=== PATIENT | male | born 1955 | race Caucasian/White ===

== ENCOUNTER → 2016-11-26 | Outpatient (CLI) | payer OTHER ==
[~2016-11-26] MED LIST: ABL10 PO; ACET-1138 PO; ACET-24 PO; AMOX500C3 PO; ASPCH81X PO; ASPEC81 PO; CGN5 PO; CGN5X PO; CLB200 PO; FLUO20CA35 PO; FRRG PO; GLC/500 PO; IBUP-103 PO; IBUP-1428 PO; MULT-513 PO; MULT-890 PO; ONDA8TAB6 PO; OXYC-57 PO; OXYC1TAB3 PO; OXYSR10 PO; POLY335019 PO; PRLSR20 PO; RISP1TAB68 PO; RISP2TAB22 PO; RIVAROXABAN; RXC5 PO; THIO50TA PO; THIO50TA9 PO
[2016-11-26 12:26] LABS: BASO % 0.3 %; BASO ABS # 0.02 K/uL (0-0.2); COMPLETE YES; EOS % 3.9 %; HEMATOCRIT 39.3 % (42-52); IG% 0.6 %; LYMPH % 19.8 %; LYMPH ABS # 1.41 K/uL (1.2-3.4); MEAN CORPUSCULAR HEMOGLOBIN 28.2 pg (25-34); MEAN CORPUSCULAR HGB CONC 36.1 g/dl (32-36); MEAN PLATELET VOLUME 8.9 fL (7.4-10.4); MONO % 11.1 %; NEUT % 64.3 %; PLATELET COUNT 154 K/uL (130-400); RED BLOOD COUNT 5.04 M/uL (4.7-6.1); WHITE BLOOD COUNT 7.11 K/uL (4.8-10.8)
== END | disposition home or self-care (01) ==
LOC: C.LAB 10:47
DX: T84.018D Broken internal joint prosthesis, other site, subsequent encounter (principal); Y83.1 Surgical operation with implant of artificial internal device as the cause of abnormal reaction of the patient, or of later complication, without mention of misadventure at the time of the procedure

== ENCOUNTER 2016-12-25 08:22 | Inpatient (IN) | payer OTHER ==
[2016-12-09 11:28] VITALS: BMI 40.0
--- NOTE | 2016-12-09 12:09 | PAT Medication Instructions ---
Service Date Dec 09, 2016. Current Home Medication List Amoxicillin (Amoxil), 2,000 MG PO UD PRN for RN Benztropine Mesylate (Cogentin *), 0.5 MG PO QAM Fluoxetine (Prozac), 20 MG PO QAM Ibuprofen (Motrin), 800 MG PO BID PRN for Pain Metformin Hcl (Glucophage), 500 MG PO BID Multivitamins/Minerals (Mvi With Minerals), 1 TAB PO QAM Omeprazole (Prilosec), 20 MG PO QAM Risperidone (Risperdal), 1 MG PO HS Thioridazine Hcl (Mellaril), 50 MG PO TID Medication Instructions For Your Scheduled Surgery Amoxicillin (Amoxil), 2,000 MG PO UD PRN for RN (takes only prior to dental procedures) - Hold the following medications 48 hours prior to surgery: Metformin Hcl (Glucophage), 500 MG PO BID - Hold the following medications the morning of surgery: Multivitamins/Minerals (Mvi With Minerals), 1 TAB PO QAM Ibuprofen (Motrin), 800 MG PO BID PRN for Pain (not told to stop by surgeon) - Take the following medications the morning of surgery with a sip of water: Omeprazole (Prilosec), 20 MG PO QAM Fluoxetine (Prozac), 20 MG PO QAM Thioridazine Hcl (Mellaril), 50 MG PO TID Benztropine Mesylate (Cogentin *), 0.5 MG PO QAM - Take the following medications as scheduled the night before surgery: Risperidone (Risperdal), 1 MG PO HS hioridazine Hcl (Mellaril), 50 MG PO TID If you have any questions please call us at [phone] or [phone] ( [place]) or [phone]
--- NOTE | 2016-12-09 12:29 | DIAGNOSTIC IMAGING REPORT ---
CHEST 2 VIEWS ROUTINE CLINICAL HISTORY: pat preoperative evaluation COMPARISON STUDY: 09/01/2011 FINDINGS: The bones soft tissues and hemidiaphragms are normal. The cardiomediastinal silhouette is normal. The lungs are clear. The pulmonary vasculature is normal. IMPRESSION: Negative chest. Electronically signed by: Trace Jacques M.D. 12/09/2016 12:27 PM Dictated Date/Time: 12/09/2016 12:27 PM
[2016-12-09 12:31] LABS: URINE APPEARANCE CLEAR (CLEAR); URINE BILIRUBIN NEG (NEG); URINE COLOR YELLOW; URINE NITRITE NEG (NEG); URINE PH 5.5 (4.5-7.5); URINE SPECIFIC GRAVITY 1.007 (1.000-1.030); UROBILINOGEN NEG (NEG)
[2016-12-09 12:36] LABS: MANUAL MICROSCOPIC REQUIRED? NO; REVIEW REQ? NO
[2016-12-09 12:39] LABS: PARTIAL THROMBOPLASTIN RATIO 1.1; PROTHROMBIN TIME (PATIENT) 10.2 SECONDS (9.0-12.0)
[2016-12-09 13:39] LABS: BUN/CREATININE RATIO 18.9 (10-20); CALCIUM 9.4 mg/dl (8.5-10.1); POTASSIUM 3.7 mmol/L (3.5-5.1)
[2016-12-09 14:01] LABS: ESTIMATED AVERAGE GLUCOSE 123 mg/dl; HA1C FLAG Normal (Normal)
--- NOTE | 2016-12-24 13:06 | HISTORY & PHYSICAL EXAMINATION ---
DATE OF ADMISSION: 12/25/2016 CHIEF COMPLAINT: Right knee pain status post previous right total knee arthroplasty. HISTORY OF PRESENT ILLNESS: The patient is a 61-year-old male, approximately 5-6 years status post right total knee arthroplasty. He has had progressive pain and disability with his knee. X-ray examination shows evidence of osteolysis about both femoral and tibial components consistent with loosening. He had a negative sed rate, slightly elevated CRP to rule out infection. He is now scheduled for a right total knee revision for aseptic loosening. PAST MEDICAL HISTORY: Sleep apnea with CPAP use, depression, peptic ulcer disease, hyperlipidemia, metabolic syndrome, genital herpes, obesity, schizoaffective disorder. PAST SURGICAL HISTORY: Total knee arthroplasty as above, also left total knee arthroplasty, shoulder surgery. MEDICATIONS: Ibuprofen 800 mg 2 times daily, metformin 500 mg twice daily with morning and evening meals, Prilosec 20 mg daily, risperidone 1 mg daily, Prozac 20 mg daily, thioridazine hydrochloride 50 mg 3 times daily, benztropine mesylate 0.5 mg twice daily. ALLERGIES: No known drug allergies. SOCIAL HISTORY AND REVIEW OF SYSTEMS: Noncontributory. PHYSICAL EXAMINATION: GENERAL: Well-nourished, well-developed male who appears his stated age. HEENT: Normocephalic, atraumatic, extraocular movements intact, oropharynx pink and moist. NECK: Supple without adenopathy. LUNGS: Clear to auscultation bilaterally. HEART: Regular rate and rhythm. ABDOMEN: Soft, nontender, nondistended. EXTREMITIES: The upper extremities are within normal limits. The right knee has a slight varus alignment. His range of motion is from 0-120 degrees. X-RAYS: X-rays were reviewed. He has evidence of osteolysis about both femoral and tibial components. There is evidence about the medial and lateral tibial tray as well as the anterior flange of the femoral component. 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 PLAN: Risks versus benefits were discussed. Consent was obtained. The patient's primary care physician is Dr. De La Garza. We will proceed with right total knee revision arthroplasty upon preoperative workup and medical clearance.
[2016-12-25] VITALS (7 sets, daily range): BP systolic 103–153; BP diastolic 68–95; PULSE 67–92; TEMP 36.3–37; O2SAT 95–98; Ht 170.2 cm; Wt 116.7 kg
[~2016-12-25] VITALS: Ht 170.2 cm; Wt 116.7 kg
[2016-12-25] MEDS: TRANEXAMIC ACID INJ 1,000 MG in SODIUM CHLORIDE 0.9% 100ML 100 ML IV SCH ×2 (06:30→10:21)
[~2016-12-25 08:22] MED LIST changes: -ABL10 PO; -ACET-1138 PO; -ACET-24 PO; +ACETAMINOPHEN 500 MG TAB PO SCH; -ASPCH81X PO; -ASPEC81 PO; +BUPIVACAINE 0.5 % 5 MG/1 ML PF 10ML VIAL ONE; +CEFAZOLIN 2000 MG/60 ML D5W 60 ML IV SCH; -CGN5X PO; -CLB200 PO; +CeleBREX 200 MG CAP PO SCH; +DEXAMETHASONE 4 MG TAB PO SCH; +FAMOTIDINE 20 MG TAB PO SCH; -FRRG PO; +GABAPENTIN 300 MG CAP PO SCH; -IBUP-103 PO; +LACTATED RINGER'S 1000ML 1,000 ML IV SCH; +LACTATED RINGER'S 1000ML 500 ML IV ONE; +LACTATED RINGER'S 1000ML IV SCH; +METOCLOPRAMIDE HCL 10 MG TAB PO SCH; +MISSING PHYSICIAN SIGNATURE ON ORDER SCH; -MULT-890 PO; -ONDA8TAB6 PO; -OXYC-57 PO; -OXYC1TAB3 PO; -OXYSR10 PO; -POLY335019 PO; -RISP2TAB22 PO; -RIVAROXABAN; +ROPIVACAINE 5MG/ML 30 ML 150 MG, BUPIVACAINE/EPINEPHR 0.5% MPF 30 ML, KETOROLAC TROMETH... INFIL SCH; -RXC5 PO; -THIO50TA PO; +TRANEXAMIC ACID INJ 1,000 MG in SODIUM CHLORIDE 0.9% 100ML 100 ML IV SCH; +VANCOMYCIN INJ 1,750 MG in SODIUM CHLORIDE 0.9% 500ML 500 ML IV SCH
--- NOTE | 2016-12-25 08:32 | History & Physical Bridge Note ---
H&P Re-Evaluation Bridge Note: I have examined the patient, reviewed the History & Physical and in the interval since the performance of the History & Physical I have noted the following changes of clinical significance: No changes noted
[2016-12-25] MEDS ORDERED: MIDAZOLAM HCL 1 MG/ML 2ML VIAL ONE (08:41)
[2016-12-25] MEDS ORDERED: FENTANYL CITRATE INJ 50 MCG/1 ML 2 ML VIAL ONE (08:42)
[2016-12-25] MEDS ORDERED: ATROPINE SULFATE 0.1 MG/ML 5ML SYR IV PRN (10:15)
[2016-12-25] MEDS ORDERED: FENTANYL CITRATE INJ 50 MCG/1 ML 2 ML VIAL IV PRN (10:15)
[2016-12-25] MEDS ORDERED: ONDANSETRON INJ 2 MG/ML 2 ML VIAL IV PRN ×2 (10:15→14:30)
[2016-12-25] MEDS ORDERED: EpHEDrine SULFATE INJ 50 MG/ML AMP IV PRN (10:15)
[2016-12-25] MEDS ORDERED: ORTHO JOINT ANESTHETIC ONE (10:22)
[2016-12-25] MEDS ORDERED: POVIDONE-IODINE OP SOLN 30 ML BTL ONE (10:22)
[2016-12-25] MEDS ORDERED: BACITRACIN 50000 UNIT VIAL ONE (10:22)
[2016-12-25] MEDS ORDERED: BUPIVACAINE 0.25% 30 ML VIAL ONE (10:45)
[2016-12-25] MEDS ORDERED: LIDOCAINE HCL 2% 2 ML VIAL (20MG/ML) ONE (11:32)
[2016-12-25] MEDS ORDERED: PROPOFOL IV EMULSION 10 MG/ML 20 ML VIAL IV ONE ×3 (11:32→12:58)
[2016-12-25] MEDS ORDERED: PHENYLEPHRINE HCL INJ 10 MG/ML VIAL ONE (11:32)
[2016-12-25] MEDS ORDERED: EpHEDrine SULFATE 50MG/5ML SYR ONE (11:32)
[2016-12-25] MEDS ORDERED: PHENYLEPHRINE 100MCG/ML 5ML SYR ONE (11:32)
--- NOTE | 2016-12-25 13:55 | [facility] Post Operative Brief Note ---
Immediate Operative Summary Operative Date Dec 25, 2016. Pre-Operative Diagnosis Right knee pain, aseptic loosening right total knee arthroplasty Post-Operative Diagnosis Right knee pain, aseptic loosening right total knee arthroplasty Procedure(s) Performed Right total knee revision Surgeon Dr. Bautista Negotiator Surgeon(s) Rodrick Perales PA-C Estimated Blood Loss 20cc Specimens Specimen: A. Explanted hardware right knee Micro: (Aerobic, Anaerobic, gram stain) 1. Right knee joint fluid 2. Right knee joint fluid 3. Right knee joint fluid Frozen Section: FS#1: Bone cement interface Right femur FS #2: Tibial bone cement interface Complication(s) None Disposition Recovery Room / PACU
[2016-12-25] MEDS ORDERED: MAGNESIUM HYDROXIDE SUSP 30 ML UDC PO PRN (14:30)
[2016-12-25] MEDS ORDERED: TAMSULOSIN HCL 0.4 MG CAP PO PRN (14:30)
[2016-12-25] MEDS ORDERED: METOCLOPRAMIDE HCL INJ 5 MG/ML 2 ML VIAL IV PRN (14:30)
[2016-12-25] MEDS ORDERED: ZOLPIDEM TARTRATE 5 MG TAB PO PRN (14:30)
[2016-12-25] MEDS ORDERED: OXYCODONE HCL IR 5 MG TAB (IMMEDIATE RELEASE) PO PRN (14:30)
[2016-12-25] MEDS ORDERED: ALUMINUM/MAGNESIUM/SIMETH (MAALOX MAX) 30 ML UDC PO PRN (14:30)
[2016-12-25] MEDS ORDERED: MoRPHine SULFATE 2 MG/ML CARP IV PRN ×2 (14:30→16:30)
[2016-12-25] MEDS ORDERED: PHARMACY GLYCEMIC MGMT CONSULT SCH (14:34)
--- NOTE | 2016-12-25 15:15 | DIAGNOSTIC IMAGING REPORT ---
TWO VIEWS RIGHT KNEE CLINICAL HISTORY: Postoperative examination. FINDINGS: AP and crosstable lateral portable views of the right knee are obtained. A hinged right knee arthroplasty is in near anatomic alignment. There are long tibial and femoral stems. There has been undersurface remodeling of the patella. No acute fracture is seen. There are expected postoperative changes around the knee including skin clips, a surgical drain, soft tissue edema, and subcutaneous gas. A calcified fabella is incidentally noted. IMPRESSION: Expected postoperative changes status post right knee arthroplasty. No acute fracture is seen. Electronically signed by: Gabriele Sanchez M.D. 12/25/2016 3:14 PM Dictated Date/Time: 12/25/2016 3:14 PM
--- NOTE | 2016-12-25 15:21 | OPERATIVE REPORT ---
DATE OF OPERATION: 12/25/2016 PREOPERATIVE DIAGNOSIS: Aseptic loosening, right total knee. POSTOPERATIVE DIAGNOSIS: Aseptic loosening, right total knee. PROCEDURE: Revision total knee arthroplasty, aseptic loosening, right total knee. SURGEON: Dr. Bautista. GENERAL UTILITY MACHINE OPERATOR: Rodrick Perales PA-C ANESTHESIA: Spinal. COMPLICATIONS: None. NOTE: Mr. Perales was essential in all portions of this very complicated and extensive revision case. He helped with positioning, prepping, draping, total knee revision, wound closure and dressing application. DESCRIPTION OF PROCEDURE: Following the induction of adequate spinal anesthesia, the patient's right leg was exsanguinated with an Esmarch bandage, tourniquet was inflated to 300 mmHg. Previously made incision was reopened. Subcutaneous tissue was sharply dissected. Electrocautery was used for hemostasis. Three cultures were sent to lab for Gram stain culture sensitivity and the joint fluid was suctioned dry. Great hypertrophic synovitis was noted throughout the joint. This was removed using sharp dissection. First the lateral snip was performed in the lateral half of the rectus tendon to aid in exposure and significant scarring from the undersurface of the patellar tendon was carried out. A lateral release was also carried out to aid in exposure. The tibial poly was removed and attention was turned to the distal femur where artist chisels and the [employer] component extraction system was utilized to remove the femoral component. This was removed with great ease. Substantial fibrinous debris from the bone cement interface was sent to lab for pathology. No bone was lost with removal of the component; however, substantial osteolysis was noted, most notably anteriorly as well as the posterior condyles. Significant augmentation was going to be required. Attention was then turned to the tibia which was found to be grossly loose. Saw was used to develop the bone cement plane anterior medially and then Fukuda extraction systems was utilized to remove the femoral component. [employer] bone cement instruments were used to remove the majority of the cement from the canal, a long drill was utilized to drill through the cement plug and this was broken up using hand instruments and the cement fragments were removed using a pituitary rongeur. Next, sequential reamings were taken up in the tibia, first with a drill and then a starter reamer up to a 10 mm reamer. The canal was quite narrow and a 10 mm was accepted. The size 4 trial tibia was chosen after making a cleanup cut and removing posterior scar. The biggest proximal defect was in the posterior medial and tibial plateau. All soft tissue was removed until good bone stalk was exposed. Next, the baseplate for the tibia was placed and it was found that a 4 mm offset was going to be required posteriorly offsetting the tibial tray the stem. A 5 mm augment was chosen and the trial tibial component was assembled. This was impacted in position. The decision was made to go with a size 4 femoral component, the cutting guide for the size 4 was utilized, a 16 mm tibial poly gave good reproduction of soft tissue tension and flexion and extension and posterior augments of 10 medial and laterally utilized and 5 medially and 10 laterally for the distal augments. All these cuts were made. The box was cut and the trial femoral component was assembled. Trial reduction was carried out and again a size 16 poly was chosen. The patella was inspected and there was found to be some undermining of the grade synovitis at the bone cement interface for the patella and the decision was made to go ahead and revise this. The patella was removed with an oscillating saw. [employer] K wires were utilized to remove the plastic stubs on the patella and the wound was irrigated. Pulsatile irrigation was used throughout the case and a final time at the end of the case. Cement was mixed after the components were assembled. First the tibia was cemented in position. All excess cement was removed. Following this, the femur was cemented into position and again all excess cement was removed. The tibial poly was placed, the retaining pin was impacted into position, the knee was reduced and held in extension while cement hardened. The patella was lastly cemented into position. The wound was irrigated one last time and closed. #1 Vicryl was used to close the lateral snip and the extensor mechanism. Subcutaneous tissues were closed using 0 Dexon. Skin was closed with rosa m. Sterile dressing of Adaptic, 4 x 4s, sterile Webril and double length Cayden was applied. The patient tolerated the procedure well. I attest to the content of the Intraoperative Record and any orders documented therein. Any exceptions are noted below. WARREN
--- NOTE | 2016-12-25 15:21 | Pharmacy Progress Note ---
Glycemic Control Intl Consult Date of Service Dec 25, 2016. Scope Glycemic Pharmacist consulted by Rodrick Perales PA-C on 12/25/16 for glycemic control and to write orders per [facility] inpatient glycemic control protocol Objective Weight (Kilograms): 116.70 Accuchecks BSG (last 24hrs): Test 12/25/16 08:43 12/25/16 14:32 Bedside Glucose 101 mg/dl (70-99) 93 mg/dl (70-99) HbA1c Test 12/09/16 12:12 Hemoglobin A1c 5.9 % (4.5-5.6) H Recent Pertinent Medications Outpatient Anti-diabetic Regimen: * Metformin 500mg BIDM * A1c = 5.9 % from 12/09/16 Risk Factors for Insulin Resistance: * Steroids: Decadron 10mg PO x 1 , POD 1 * Infection: Vancomycin pre-op, Ancef post-op, infxn prophylaxis * IVF:NS at 100 ml/hr * Recent Surgery: POD 0, TKA * Diet: DM2 Assessment & Plan ASSESSMENT: * ADA & AACE recommend a goal blood sugar range 140-180 mg/dl for the majority of critically ill & non-critically ill patients. However, more stringent targets may be selected in individual cases. * 61 yo male admitted s/p TKA by Dr. Bautista today. * Pt with h/o DM2. A1c indicates well-controlled BSGs on Metformin therapy alone. * Oral agents are not recommended for inpatient use d/t drug interactions, changing PO intake, and difficulty titrating for acute hyper/hypoglycemia. ADA recommends re-initiating outpatient oral agents 1-2 days prior to discharge if/ when appropriate if they were held on admission. * Will hold oral agents for admission and utilize SQ basal bolus insulin regimen which is the recommended regimen for inpatient glycemic control. * Will initiate weight based insulin dosing for insulin eze patient and titrate based on BSG trends. * Of note, the patient is ordered a single dose of Decadron po x 1 tomorrow morning. Will need to adjust insulin regimen to counter steroid effect on BSGs. I do not suspect basal insulin is necessary, however, a single dose of long acting insulin may be required tomorrow to counter long acting steroid. Will reassess in the AM * Will attempt to maintain control of BSGs to promote healing and decrease risk of infection post-operatively. PLAN FOR INPATIENT GLYCEMIC CONTROL: * No Lantus, will consider single dose tomorrow AM if steroid given. * Novolog ACHS * Set correction factor to 25 mg/dl/unit * Set carb ratio to 1 unit per 10 grams CHO consumed * Tighten CF to 20 and CR to 7 tomorrow AM (12/26/16) secondary to increased insulin needs in presence of steroid. * Set goal range to Low 120 mg/dL - High 160 mg/dL - as a buffer against hypoglycemia in insulin naive pt whose insulin needs have yet to be determined * Please note that the plan above was derived based on current level of insulin resistance and hospital stress. These recommendations are appropriate for inpatient admission only. Plan of care upon discharge will need to be reassessed to avoid potential outpatient hypo/hyperglycemia. Thank you.
[2016-12-25] MEDS ORDERED: GLUCAGON FOR INJ 1 MG VIAL SQ PRN (15:30)
[2016-12-25] MEDS ORDERED: DEXTROSE 50% 50 ML SYR IV PRN (15:30)
[2016-12-25] MEDS ORDERED: GLUCOSE 10 TABS/TUBE PO PRN (15:30)
[2016-12-25] MEDS ORDERED: GLUCOSE 40% GEL 15 GM TUBE PO PRN (15:30)
--- NOTE | 2016-12-25 16:28 | Anesthesiology Progress Note ---
Anesthesia Post Op Note Date & Time Dec 25, 2016 at 16:27 Vital Signs Pain Intensity: 0 Vital Signs Past 12 Hours Date Time Temp Pulse Resp B/P Pulse Ox O2 Delivery O2 Flow Rate FiO2 12/25/16 16:03 36.4 73 16 113/75 98 Nasal Cannula 2.0 12/25/16 15:35 36.6 71 18 103/69 96 Nasal Cannula 2.0 12/25/16 15:18 37.0 12/25/16 15:16 116/67 12/25/16 15:12 71 17 12/25/16 15:12 70 17 100 12/25/16 15:11 112/76 12/25/16 15:07 78 15 90 12/25/16 15:07 77 15 12/25/16 15:06 119/73 12/25/16 15:04 78 17 92 12/25/16 15:04 79 17 12/25/16 15:00 112/74 12/25/16 14:59 76 19 12/25/16 14:59 76 19 92 12/25/16 14:56 98/77 12/25/16 14:54 71 14 12/25/16 14:54 71 14 93 12/25/16 14:53 71 17 12/25/16 14:53 72 17 93 12/25/16 14:51 119/70 12/25/16 14:48 75 14 12/25/16 14:48 73 14 93 12/25/16 14:47 70 15 12/25/16 14:47 70 15 93 12/25/16 14:46 107/77 12/25/16 14:42 72 16 93 12/25/16 14:42 73 16 12/25/16 14:41 118/88 12/25/16 14:37 72 12 93 12/25/16 14:37 72 12 12/25/16 14:36 112/94 12/25/16 14:32 73 24 89 12/25/16 14:32 72 24 12/25/16 14:31 137/86 12/25/16 14:28 112/82 12/25/16 14:27 36.7 73 16 112/83 95 Mask 10 12/25/16 14:27 76 12/25/16 14:27 76 93 12/25/16 08:40 92 18 153/95 95 Room Air Notes Mental Status: alert / awake / arousable, participated in evaluation Pt Amnestic to Procedure: Yes Nausea / Vomiting: adequately controlled Pain: adequately controlled Airway Patency, RR, SpO2: stable & adequate BP & HR: stable & adequate Hydration State: stable & adequate Neuraxial Anesthesia: was administered, sensory block is resolving Anesthetic Complications: no major complications apparent
[2016-12-25] MEDS ORDERED: MoRPHine SULFATE 10 MG/ML CARP/VIAL IV PRN (16:30)
[2016-12-25] MEDS ORDERED: MoRPHine SULFATE 4 MG/ML 1 ML CARP\\VIAL IV PRN (16:30)
[2016-12-25] MEDS: INSULIN ASPART 100 UNITS/ML 3 ML PEN SC SCH ×2 (17:15→21:00)
[2016-12-25] MEDS: SODIUM CHLORIDE 0.9% 1000ML 1,000 ML IV SCH ×2 (17:40→23:51)
[2016-12-25] MEDS: FERROUS GLUCONATE 324 MG TAB PO SCH (17:42)
[2016-12-25] MEDS: CEFAZOLIN IV 2,000 MG in DEXTROSE 5% 50ML 50 ML IV SCH (18:44)
[2016-12-25] MEDS: KETOROLAC TROMETHAMINE 30 MG/ML VIAL IV. SCH ×2 (18:44→23:46)
[2016-12-25] MEDS: OXYCODONE HCL 10 MG TABCR (OXYCONTIN) PO SCH (21:25)
[2016-12-25] MEDS: ASPIRIN 81 MG ECTAB PO SCH (21:26)
[2016-12-25] MEDS: DOCUSATE SODIUM 100 MG CAP PO SCH (21:26)
[2016-12-25] MEDS: RISPERIDONE 1 MG TAB PO SCH (21:26)
[2016-12-25] MEDS: ACETAMINOPHEN 500 MG TAB PO SCH (21:29)
[2016-12-26] MEDS: CEFAZOLIN IV 2,000 MG in DEXTROSE 5% 50ML 50 ML IV SCH (02:00)
[2016-12-26 03:05] VITALS: BP 131/79; PULSE 77; TEMP 36.4; O2SAT 96
[2016-12-26] MEDS: KETOROLAC TROMETHAMINE 30 MG/ML VIAL IV. SCH ×2 (05:33→12:16)
[2016-12-26] MEDS: ACETAMINOPHEN 500 MG TAB PO SCH ×3 (05:33→22:05)
[2016-12-26 06:29] LABS: HEMATOCRIT 33.4 % (42-52); MEAN CORPUSCULAR HEMOGLOBIN 27.2 pg (25-34); MEAN CORPUSCULAR HGB CONC 34.4 g/dl (32-36); MEAN PLATELET VOLUME 8.7 fL (7.4-10.4); PLATELET COUNT 150 K/uL (130-400); RED BLOOD COUNT 4.23 M/uL (4.7-6.1); WHITE BLOOD COUNT 12.11 K/uL (4.8-10.8)
[2016-12-26 07:10] LABS: BUN/CREATININE RATIO 15.1 (10-20); CALCIUM 8.5 mg/dl (8.5-10.1); CREATININE 0.84 mg/dl (0.60-1.40); POTASSIUM 3.8 mmol/L (3.5-5.1)
[2016-12-26 07:29] VITALS: BP 123/76; PULSE 75; TEMP 36.4; O2SAT 97
[2016-12-26] MEDS ORDERED: DEXAMETHASONE INJ 10 MG in SYRINGE 0 ML IV SCH (07:30)
--- NOTE | 2016-12-26 07:37 | Orthopedic Progress Note ---
Orthopedic Progress Note Date of Service Dec 26, 2016. Subjective Post OP Day: 1 Reports: feeling well, Denies: SOB, calf pain, chest pain, light headedness, nausea / vomiting Objective calves soft nontender, N/V intact, dressing C/D/I, A&O x3, toes mobile, hemovac drainage (150ml latest shift) Date Time Temp Pulse Resp B/P Pulse Ox O2 Delivery O2 Flow Rate FiO2 12/26/16 07:29 36.4 75 18 123/76 97 Nasal Cannula 2.0 12/26/16 03:05 36.4 77 16 131/79 96 Nasal Cannula 1.5 12/25/16 23:51 Nasal Cannula 2.0 12/25/16 23:00 36.4 75 16 126/80 96 Nasal Cannula 1.5 12/25/16 18:58 36.3 73 18 132/87 98 Nasal Cannula 1.0 12/25/16 17:41 37.0 79 18 124/79 97 Nasal Cannula 2.0 12/25/16 16:33 36.3 67 18 107/68 97 Nasal Cannula 2.0 12/25/16 16:03 36.4 73 16 113/75 98 Nasal Cannula 2.0 12/25/16 15:35 Nasal Cannula 2.0 12/25/16 15:35 96 Nasal Cannula 2.0 12/25/16 15:35 36.6 71 18 103/69 96 Nasal Cannula 2.0 12/25/16 15:18 37.0 12/25/16 15:16 116/67 12/25/16 15:12 71 17 12/25/16 15:12 70 17 100 12/25/16 15:11 112/76 12/25/16 15:07 78 15 90 12/25/16 15:07 77 15 12/25/16 15:06 119/73 12/25/16 15:04 78 17 92 12/25/16 15:04 79 17 12/25/16 15:00 112/74 12/25/16 14:59 76 19 12/25/16 14:59 76 19 92 12/25/16 14:56 98/77 12/25/16 14:54 71 14 12/25/16 14:54 71 14 93 12/25/16 14:53 71 17 12/25/16 14:53 72 17 93 12/25/16 14:51 119/70 12/25/16 14:48 75 14 12/25/16 14:48 73 14 93 12/25/16 14:47 70 15 12/25/16 14:47 70 15 93 12/25/16 14:46 107/77 12/25/16 14:42 72 16 93 12/25/16 14:42 73 16 12/25/16 14:41 118/88 12/25/16 14:37 72 12 93 12/25/16 14:37 72 12 12/25/16 14:36 112/94 12/25/16 14:32 73 24 89 12/25/16 14:32 72 24 12/25/16 14:31 137/86 12/25/16 14:28 112/82 12/25/16 14:27 36.7 73 16 112/83 95 Mask 10 12/25/16 14:27 76 12/25/16 14:27 76 93 12/25/16 08:40 92 18 153/95 95 Room Air Laboratory Results 24 Hours: Test 12/26/16 05:10 Hematocrit 33.4 % Hemoglobin 11.5 g/dL Assessment & Plan Assessment: POD 1 s/p Right TKA Plan: PT/OT Planning for OPPT when dc'd Inhouse Planning Pain Management: Celebrex, Toradol, Oxycontin, Morphine, PO Tylenol, Oxy IR DVT Prophylaxis: TEDs, SCDs, ASA Discharge Planning Discharge Planning: home with oppt Pain Management: Oxycontin, PO Tylenol, Oxy IR DVT Prophylaxis: TEDs, ASA Therapy: Physical Therapy
--- NOTE | 2016-12-26 08:06 | Anesthesiology Progress Note ---
Anesthesia Post Op Note Date & Time Dec 26, 2016 at 08:05 Vital Signs Pain Intensity: 0.0 Vital Signs Past 12 Hours Date Time Temp Pulse Resp B/P Pulse Ox O2 Delivery O2 Flow Rate FiO2 12/26/16 07:29 36.4 75 18 123/76 97 Nasal Cannula 2.0 12/26/16 03:05 36.4 77 16 131/79 96 Nasal Cannula 1.5 12/25/16 23:51 Nasal Cannula 2.0 12/25/16 23:00 36.4 75 16 126/80 96 Nasal Cannula 1.5 Notes Mental Status: alert / awake / arousable, participated in evaluation Pt Amnestic to Procedure: Yes Nausea / Vomiting: adequately controlled Pain: adequately controlled Airway Patency, RR, SpO2: stable & adequate BP & HR: stable & adequate Hydration State: stable & adequate Neuraxial Anesthesia: sensory block resolved Anesthetic Complications: no major complications apparent
[2016-12-26] MEDS: MULTIVITAMIN TAB PO SCH (08:20)
[2016-12-26] MEDS: FERROUS GLUCONATE 324 MG TAB PO SCH ×3 (08:21→18:26)
[2016-12-26] MEDS: FLUOXETINE HCL 20 MG CAP PO SCH (08:21)
[2016-12-26] MEDS: BENZTROPINE MESYLATE 0.5 MG TAB PO SCH (08:21)
[2016-12-26] MEDS: PANTOprazole SOD 40 MG TAB PO SCH (08:21)
[2016-12-26] MEDS: DOCUSATE SODIUM 100 MG CAP PO SCH ×2 (08:22→20:37)
[2016-12-26] MEDS: ASPIRIN 81 MG ECTAB PO SCH ×2 (08:22→20:37)
[2016-12-26] MEDS: OXYCODONE HCL 10 MG TABCR (OXYCONTIN) PO SCH ×2 (08:25→20:42)
[2016-12-26] MEDS: INSULIN ASPART 100 UNITS/ML 3 ML PEN SC SCH ×4 (08:37→20:46)
[2016-12-26] MEDS: SODIUM CHLORIDE 0.9% 1000ML 1,000 ML IV SCH (10:23)
[2016-12-26 11:08] VITALS: BP 124/79; PULSE 74; TEMP 36.4; O2SAT 95
--- NOTE | 2016-12-26 14:40 | Pharmacy Progress Note ---
Glycemic Control: Progress Nt Date of Service Dec 26, 2016. Scope Glycemic Pharmacist consulted by Rodrick Perales on 12/25/16 for glycemic control and to write orders per [facility] inpatient glycemic control protocol. Objective Accuchecks BSG (last 24hrs): Test 12/25/16 17:24 12/25/16 21:22 12/26/16 05:10 12/26/16 08:25 Bedside Glucose 103 mg/dl (70-99) 111 mg/dl (70-99) 113 mg/dl (70-99) Random Glucose 117 mg/dl (70-99) Test 12/26/16 11:48 Bedside Glucose 108 mg/dl (70-99) Laboratory Data (last 24hrs) Test 12/26/16 05:10 Anion Gap 8.0 mmol/L BUN/Creatinine Ratio 15.1 Blood Urea Nitrogen 13 mg/dl Creatinine 0.84 mg/dl Potassium Level 3.8 mmol/L Sodium Level 137 mmol/L White Blood Count 12.11 K/uL HbA1c: Test 12/09/16 12:12 Hemoglobin A1c 5.9 % (4.5-5.6) H Recent Pertinent Medications Outpatient Anti-diabetic Regimen: * metformin 500mg PO BID * A1c = 5.9 % 12/09/16 The patient is currently receiving: * Basal insulin: * none at time of consult * Correctional Insulin: * NovoLog SQ AC/HS * Goal Range: Low 120 mg/dL - High 160 mg/dL * Correction Factor: 20 mg/dL/unit * Carb ratio of 1 unit per 7 grams CHO consumed * Oral Agents: * none at time of consult Risk Factors for Insulin Resistance: * Steroids: dexamethasone 10mg IV x1 dose this AM * Infection: cefazolin perioperatively (discontinued now) * IVF: NSS * Recent Surgery: POD #1 * Diet: T2DM Assessment & Plan ASSESSMENT: * ADA & AACE recommend a goal blood sugar range 140-180 mg/dl for the majority of critically ill & non-critically ill patients. However, more stringent targets may be selected in individual cases. Will utilize more stringent goal of 110-140mg/dl based on patient age & comorbidities. Additionally, tighter glycemic control is warranted to facilitate wound/infection healing. * 61 yo male admitted s/p TKA by Dr. Bautista today. * Pt with h/o DM2. A1c indicates well-controlled BSGs on Metformin therapy alone. * Oral agents are not recommended for inpatient use d/t drug interactions, changing PO intake, and difficulty titrating for acute hyper/hypoglycemia. ADA recommends re-initiating outpatient oral agents 1-2 days prior to discharge if/ when appropriate if they were held on admission. * Will hold oral agents for admission and utilize SQ basal bolus insulin regimen which is the recommended regimen for inpatient glycemic control. * Will initiate weight based insulin dosing for insulin eze patient and titrate based on BSG trends. 12/26/16 * Of note, the patient is ordered a single dose of Decadron IV x 1 12/26/16. * BSGs remain stable with NovoLog alone * PO intake appropriate * will remove prandial NovoLog and begin home metformin at this time in preparation for discharge PLAN FOR INPATIENT GLYCEMIC CONTROL: * Basal insulin: * none * Bolus insulin: * Correctional ONLY with NovoLog ACHS - Correction factor: 30mg/dL/unit - Goal range: 110-140mg/dL to promote healing and tight glycemic control postoperatively * Oral agents: * begin home dose of metformin 500mg PO BID with dinner tonight * A1c - current * added to discharge instructions RECOMMENDATIONS FOR DISCHARGE: * continue home regimen * Please note that the plan above was derived based on current level of insulin resistance and hospital stress. These recommendations are appropriate for inpatient admission only. Plan of care upon discharge will need to be reassessed to avoid potential outpatient hypo/hyperglycemia. Thank you.
[2016-12-26] MEDS: THIORIDAZINE HCL PO SCH ×2 (15:27→20:39)
[2016-12-26 15:28] VITALS: BP 121/76; PULSE 67; TEMP 36.4; O2SAT 95
[2016-12-26] MEDS: METFORMIN HCL 500 MG TAB PO SCH (18:25)
[2016-12-26] MEDS: CeleBREX 200 MG CAP PO SCH (20:34)
[2016-12-26] MEDS: RISPERIDONE 1 MG TAB PO SCH (20:43)
[2016-12-26 22:54] VITALS: BP 139/80; PULSE 77; TEMP 37.2; O2SAT 97
[2016-12-27] MEDS: ACETAMINOPHEN 500 MG TAB PO SCH (05:30)
[2016-12-27 07:10] VITALS: BP 131/81; PULSE 71; TEMP 36.5; O2SAT 94
--- NOTE | 2016-12-27 07:36 | Orthopedic Progress Note ---
Orthopedic Progress Note Date of Service Dec 27, 2016. Subjective Post OP Day: 2 Reports: feeling well, pain controlled w PO medications, Denies: SOB, calf pain , chest pain, complaints, light headedness, nausea / vomiting Additional Notes: Gram stain and cxs negative Objective calves soft nontender, N/V intact, capillary refill less than 2 sec., dressing C /D/I, A&O x3, toes mobile Date Time Temp Pulse Resp B/P Pulse Ox O2 Delivery O2 Flow Rate FiO2 12/27/16 07:10 36.5 71 14 131/81 94 Room Air 12/27/16 00:30 Nasal Cannula 2.0 12/26/16 22:54 37.2 77 16 139/80 97 Nasal Cannula 2.0 12/26/16 18:03 Room Air 12/26/16 15:28 36.4 67 18 121/76 95 Room Air 12/26/16 11:08 36.4 74 18 124/79 95 Room Air Assessment & Plan Assessment: POD 2 s/p Right TKA Plan: PT/OT Planning for OPPT today Inhouse Planning Pain Management: Celebrex, Toradol, Oxycontin, Morphine, PO Tylenol, Oxy IR DVT Prophylaxis: TEDs, SCDs, ASA Discharge Planning Discharge Planning: home with oppt Pain Management: Oxycontin, PO Tylenol, Oxy IR DVT Prophylaxis: TEDs, ASA Therapy: Physical Therapy
[2016-12-27] MEDS ORDERED: ONDA8TAB6 PO (07:39)
[2016-12-27] MEDS ORDERED: ACET-1138 PO (07:39)
[2016-12-27] MEDS ORDERED: CLB200 PO (07:39)
[2016-12-27] MEDS ORDERED: RXC5 PO (07:39)
[2016-12-27] MEDS ORDERED: ASPEC81 PO (07:39)
[2016-12-27] MEDS ORDERED: OXYSR10 PO (07:39)
--- NOTE | 2016-12-27 07:41 | Discharge Instructions ---
Discharge Instructions Date of Service Dec 27, 2016. Admission Reason for Admission: Right Knee Mechanical Loosening Of Prosthetic Join Discharge Discharge Diagnosis / Problem: right knee revision aseptic TKA Discharge Goals Goal(s): Improve function Activity Recommendations Activity Limitations: as noted below . Instructions / Follow-Up Instructions / Follow-Up ACTIVITY RECOMMENDATIONS: SELF CARE INSTRUCTIONS AFTER TOTAL KNEE REPLACEMENT A. You may need to continue a physical therapy program after discharge from the hospital. There are several options available to you. Your doctor will assist you in selecting the best one for you. 1. An out-patient facility 2 to 3 times a week for therapy or home therapy. 2. Continue working on all exercises taught to you in the hospital. Your goals should be to increase bending of your knee to 90 degrees and beyond and to fully straighten your knee. B. You may progress at your own pace from walking with a walker or crutches to a cane; then to no assistive devices. C. Make walking a part of your daily routine. Be up as much as comfortable with rest periods throughout the day. Rest with leg elevation is very important. Use the ice wrap frequently for the first 3-4 weeks. D. There are no restrictions on activities. You may ride in a car, shop, participate in sand drier and all social activities. E. Wear the long elastic stockings (GERMAIN hose) 20 hours a day for 2 weeks after surgery. They can be removed several times a day for laundering and for a bath. F. You may shower, no tub baths until cleared by your doctor. SPECIAL CARE INSTRUCTIONS: VERY IMPORTANT TO READ AND REVIEW A. There are a few signs you need to watch for after you are home. Call [facility] [place] if you notice any of the followin. Increased severe knee pain. Some pain is expected especially when you exercise. 2. Increased swelling in your leg or knee; pain or swelling of the calf muscle in either lower leg. 3. Any fluid drainage from the incision. 4. Shortness of breath or chest pain. B. Please call [facility] at if you have any concerns or questions about your operation or recovery. The doctor or his nurse will return your call promptly. C. You must take antibiotics before dental work, bladder, bowel or other surgery. Your doctor will provide you with a permanent care to carry describing this precaution. IMPORTANT: * REMEMBER TO TAKE ASPIRIN, 81 MG, TWICE DAILY FOR 4 WEEKS UNLESS OTHERWISE DIRECTED. THIS IS YOUR BLOOD THINNER. * HIGH RISK PATIENTS MAY BE PRESCRIBED A STRONGER BLOOD THINNER. THIS WILL BE PROVIDED AT DISCHARGE. * CALL IF INCREASED PAIN, REDNESS, DRAINAGE OR FEVER GREATER THAT 101. * WEAR GERMAIN HOSE 20 HOURS PER DAY FOR 2 WEEKS. * YOU MAY HAVE A LARGE BAND-AID LIKE DRESSING (SILVERON). THIS WILL REMAIN ON YOUR INCISION FOR 7 DAYS, THEN CAN BE REMOVED. IF INCISION IS LEAKING THROUGH DRESSING, CALL THE OFFICE . FOLLOW UP VISIT: If appointment is not already scheduled: Please call [facility] [place] to make a follow-up appointment for 2 weeks after your surgery at . Current Hospital Diet Patient's current hospital diet: Diabetes Type 2 Diet Discharge Diet Recommended Diet: Diabetes Type 2 Diet Procedures Procedures Performed: Right total knee revision Pending Studies Studies pending at discharge: no Laboratory Results Hemoglobin A1c Test 12/09/16 12:12 Range/Units Estimated Average Glucose 123 mg/dl Hemoglobin A1c 5.9 H 4.5-5.6 % Medical Emergencies . Who to Call and When: Medical Emergencies: If at any time you feel your situation is an emergency, please call 211 immediately. . Non-Emergent Contact Non-Emergency issues call your: Primary Care Provider . "Provider Documentation" section prepared by Trace Zapaat. . VTE Core Measure Inpt VTE Proph given/why not?: Other Anticoagulation (asa), T.E.D. Stockings, SCD's [place] Drug Monitoring Program Search Results: patient reviewed within database, no issues identified
[2016-12-27] MEDS: INSULIN ASPART 100 UNITS/ML 3 ML PEN SC SCH (08:00)
[2016-12-27] MEDS: BENZTROPINE MESYLATE 0.5 MG TAB PO SCH (08:06)
[2016-12-27] MEDS: FLUOXETINE HCL 20 MG CAP PO SCH (08:06)
[2016-12-27] MEDS: CeleBREX 200 MG CAP PO SCH (08:06)
[2016-12-27] MEDS: FERROUS GLUCONATE 324 MG TAB PO SCH (08:07)
[2016-12-27] MEDS: MULTIVITAMIN TAB PO SCH (08:07)
[2016-12-27] MEDS: METFORMIN HCL 500 MG TAB PO SCH (08:07)
[2016-12-27] MEDS: ASPIRIN 81 MG ECTAB PO SCH (08:07)
[2016-12-27] MEDS: DOCUSATE SODIUM 100 MG CAP PO SCH (08:07)
[2016-12-27] MEDS: PANTOprazole SOD 40 MG TAB PO SCH (08:08)
[2016-12-27] MEDS: THIORIDAZINE HCL PO SCH (08:08)
[2016-12-27] MEDS: OXYCODONE HCL 10 MG TABCR (OXYCONTIN) PO SCH (08:16)
[2016-12-27 09:23] VITALS: BP 131/81; PULSE 71; TEMP 36.5; O2SAT 94
--- NOTE | 2017-01-07 11:34 | DISCHARGE SUMMARY ---
CHIEF COMPLAINT: Right knee pain status post previous total knee arthroplasty. Please see complete history and physical examination. HOSPITAL COURSE: The patient underwent right total knee arthroplasty without complication. He tolerated the procedure well and was discharged to recovery room in stable condition. His postoperative course was relatively uneventful. His postoperative pain was reasonably well controlled with a combination of spinal anesthesia, adductor canal block, intraoperative joint injection, IV, and oral pain medications. He was started on aspirin for DVT prophylaxis. He also utilized GERMAIN stockings and SCDs for additional prophylaxis. His H\T\H was stable and did not require transfusion. His surgical drain was discontinued by postoperative day 2, surgical dressing will remain in place for approximately 7 days postoperative. He tolerated postoperative physical therapy reasonably well as he was bending his knee and ambulating appropriately. He was discharged home on postoperative day 2. He will continue his physical therapy as an outpatient. He will continue his aspirin for DVT prophylaxis and follow up in our office in approximately 10-14 days for his initial postop evaluation.
[2017-02-26] MEDS ORDERED: RISP2TAB22 PO (08:31)
[2017-02-26] MEDS ORDERED: ASPCH81X PO (08:31)
[2017-03-17] MEDS ORDERED: IBUP-103 PO (08:35)
[2017-05-04] MEDS ORDERED: BENZ0.5T2 PO (11:28)
== END 2016-12-27 10:47 | disposition home or self-care (01) | DRG 467 ==
LOC: ENRESERVTM → ENRESERVDT → C.ACU 08:22 → C.3E 14:26
PROC: 0SRC0J9 Replacement of Right Knee Joint with Synthetic Substitute, Cemented, Open Approach (ICD-10-PCS; principal; 2016-12-25 10:45)
PROC: 0S9C0ZX Drainage of Right Knee Joint, Open Approach, Diagnostic (ICD-10-PCS; principal; 2016-12-25 10:45)
PROC: 0SPC0JZ Removal of Synthetic Substitute from Right Knee Joint, Open Approach (ICD-10-PCS; principal; 2016-12-25 10:45)
DX: T84.032A Mechanical loosening of internal right knee prosthetic joint, initial encounter (principal); Z68.41 Body mass index [BMI] 40.0-44.9, adult; T84.052A Periprosthetic osteolysis of internal prosthetic right knee joint, initial encounter; M65.861 Other synovitis and tenosynovitis, right lower leg; E66.01 Morbid (severe) obesity due to excess calories; G47.30 Sleep apnea, unspecified; F32.9 Major depressive disorder, single episode, unspecified; F25.9 Schizoaffective disorder, unspecified; E11.9 Type 2 diabetes mellitus without complications; Z79.899 Other long term (current) drug therapy; Z79.84 Long term (current) use of oral hypoglycemic drugs; Z96.653 Presence of artificial knee joint, bilateral; Z87.11 Personal history of peptic ulcer disease; Y83.1 Surgical operation with implant of artificial internal device as the cause of abnormal reaction of the patient, or of later complication, without mention of misadventure at the time of the procedure; Y99.8 Other external cause status

== ENCOUNTER → 2017-03-06 | Day surgery (SDC) | payer BC, OTHER ==
[2017-02-26 08:34] VITALS: Ht 170.2 cm; Wt 113.6 kg
[~2017-03-06] VITALS: Ht 170.2 cm; Wt 113.6 kg
[~2017-03-06] MED LIST changes: +ACET-24 PO; -ACETAMINOPHEN 500 MG TAB PO SCH; +ASPCH81X PO; +ASPEC81 PO; -BUPIVACAINE 0.5 % 5 MG/1 ML PF 10ML VIAL ONE; -CEFAZOLIN 2000 MG/60 ML D5W 60 ML IV SCH; +CGN5X PO; -CeleBREX 200 MG CAP PO SCH; -DEXAMETHASONE 4 MG TAB PO SCH; -FAMOTIDINE 20 MG TAB PO SCH; +FRRG PO; -GABAPENTIN 300 MG CAP PO SCH; +IBUP-103 PO; -IBUP-1428 PO; -LACTATED RINGER'S 1000ML 1,000 ML IV SCH; -LACTATED RINGER'S 1000ML 500 ML IV ONE; -LACTATED RINGER'S 1000ML IV SCH; -METOCLOPRAMIDE HCL 10 MG TAB PO SCH; -MISSING PHYSICIAN SIGNATURE ON ORDER SCH; -MULT-513 PO; +MULT-890 PO; +ONDA8TAB6 PO; +OXYC1TAB3 PO; +OXYSR10 PO; +POLY335019 PO; +PROPOFOL IV EMULSION 10 MG/ML 20 ML VIAL IV ONE; -RISP1TAB68 PO; +RISP2TAB22 PO; -ROPIVACAINE 5MG/ML 30 ML 150 MG, BUPIVACAINE/EPINEPHR 0.5% MPF 30 ML, KETOROLAC TROMETH... INFIL SCH; +RXC5 PO; +SODIUM CHLORIDE 0.9% 500ML 500 ML IV ONE; +THIO50TA PO; -TRANEXAMIC ACID INJ 1,000 MG in SODIUM CHLORIDE 0.9% 100ML 100 ML IV SCH; -VANCOMYCIN INJ 1,750 MG in SODIUM CHLORIDE 0.9% 500ML 500 ML IV SCH
--- NOTE | 2017-03-06 10:58 | Endo History and Physical ---
History & Physical Date of Service: Mar 06, 2017. Chief Complaint: screening Referring Physician: Dr. Melissa GROVER,Dr. De La Garza History of Present Illness 61 yo CM who presents for screening colonoscopy. Past Surgical History Hx Cardiac Surgery: No Hx Internal Defibrillator: No Hx Pacemaker: No Hx Abdominal Surgery: No Hx Post-Op Nausea and Vomiting: No Hx Cancer Surgery: No Hx Thoracic Surgery: No Hx Orthopedic: Yes (LEFT TKA, RIGHT ARM BICEP REPAIR, R TKA, RT KNEE REVISION) Hx Urinary Tract Surgery: No Family History None Social History Smoking Status: Former Smoker Hx Substance Use: No Hx Alcohol Use: No Allergies Coded Allergies: No Known Allergies (Verified , 03/06/17) Current Medications Reported Home Medications Medications Dose Route/Sig Max Daily Dose Days Date Category Dose Instructions Risperdal (Risperidone) 2 Mg Tab 1 Mg PO QAM 02/26/17 Reported Aspirin Chewable (Aspirin) 81 Mg Chew 81 Mg PO QAM 02/26/17 Reported Amoxil (Amoxicillin) 500 Mg Cap 2,000 Mg PO UD PRN 12/09/16 Reported WITH DENTAL WORK Glucophage (Metformin Hcl) 500 Mg Tab 500 Mg PO BID 12/09/16 Reported Mellaril (Thioridazine HCl) 50 Mg Tab 1 Dose PO BID 08/14/11 Reported TAKES 2 TABS IN AM TAKES 1 TAB AT HS Prilosec (Omeprazole) 20 Mg Capcr 20 Mg PO QAM 06/05/11 Reported Prozac (Fluoxetine HCl) 20 Mg Cap 20 Mg PO QAM 06/05/11 Reported Cogentin * (Benztropine Mesylate) 0.5 Mg Tab 0.5 Mg PO QAM 06/05/11 Reported Vital Signs Weight (Kilograms): 113.64 Height (Feet): 5 Height (Inches): 7 Date Time Temp Pulse Resp B/P (MAP) Pulse Ox O2 Delivery O2 Flow Rate FiO2 03/06/17 10:30 36.4 85 20 144/72 (96) 95 Room Air Physical Exam General Appearance: WD/WN, no apparent distress Respiratory/Chest: Auscultation: breath sounds normal Cardiovascular: Heart Auscultation: RRR Abdomen: Bowel Sounds: normal Inspection & Palpation: soft, non-distended, no tenderness, guarding & rebound Assessment and Plan Assessment: 61 yo CM who presents for screening colonoscopy. Plan: Proceed with colonoscopy.
--- NOTE | 2017-03-06 12:16 | GI REPORT ---
Procedure Date: 03/06/2017 11:27 AM Procedure: Colonoscopy Indications: Screening for colorectal malignant neoplasm Medicines: Monitored Anesthesia Care Complications: No immediate complications. Estimated Blood Loss: Estimated blood loss: none. Procedure: Pre-Anesthesia Assessment: - Prior to the procedure, a History and Physical was performed, and patient medications and allergies were reviewed. The patient's tolerance of previous anesthesia was also reviewed. The risks and benefits of the procedure and the sedation options and risks were discussed with the patient. All questions were answered, and informed consent was obtained. Prior Anticoagulants: The patient has taken aspirin, last dose was 2 days prior to procedure. ASA Grade Assessment: III - A patient with severe systemic disease. After reviewing the risks and benefits, the patient was deemed in satisfactory condition to undergo the procedure. After I obtained informed consent, the scope was passed under direct vision. Throughout the procedure, the patient's blood pressure, pulse, and oxygen saturations were monitored continuously. The On-site loaner was introduced through the anus and advanced to the terminal ileum. The colonoscopy was performed without difficulty. The patient tolerated the procedure well. The quality of the bowel preparation was good. The terminal ileum, ileocecal valve, appendiceal orifice, and rectum were photographed. Findings: A 4 mm polyp was found in the cecum. The polyp was sessile. The polyp was removed with a cold snare. Resection and retrieval were complete. Four sessile polyps were found in the sigmoid colon and in the ascending colon. The polyps were 5 to 6 mm in size. These polyps were removed with a hot snare. Resection and retrieval were complete. Multiple small-mouthed diverticula were found in the sigmoid colon. Non-bleeding internal hemorrhoids were found during retroflexion. The hemorrhoids were small. Impression: - One 4 mm polyp in the cecum, removed with a cold snare. Resected and retrieved. - Four 5 to 6 mm polyps in the sigmoid colon and in the ascending colon, removed with a hot snare. Resected and retrieved. - Diverticulosis in the sigmoid colon. - Non-bleeding internal hemorrhoids. Recommendation: - Resume previous diet. - Continue present medications. - Repeat colonoscopy for surveillance based on pathology results. - Return to primary care physician as previously scheduled. Deniz Bautista DO 03/06/2017 12:16:13 PM This report has been signed electronically. Note Initiated On: 03/06/2017 11:27 AM I attest to the content of the Intraoperative Record and orders documented therein, exceptions below
--- NOTE | 2017-03-06 12:18 | Discharge Instructions ---
Endoscopy Patient Instructions Date / Procedure(s) Performed Mar 06, 2017. Colonoscopy Allergy Information Coded Allergies: No Known Allergies (Verified , 03/06/17) Discharge Date / Findings Mar 06, 2017. Colon polyps Diverticulosis Internal hemorrhoids Medication Instructions Stopped Medication(s): stopped Metformin and ASA 03/04 OK to resume all medications today as prescribed Reported Home Medications Medications Dose Route/Sig Max Daily Dose Days Date Category Dose Instructions Risperdal (Risperidone) 2 Mg Tab 1 Mg PO QAM 02/26/17 Reported Aspirin Chewable (Aspirin) 81 Mg Chew 81 Mg PO QAM 02/26/17 Reported Amoxil (Amoxicillin) 500 Mg Cap 2,000 Mg PO UD PRN 12/09/16 Reported WITH DENTAL WORK Glucophage (Metformin Hcl) 500 Mg Tab 500 Mg PO BID 12/09/16 Reported Mellaril (Thioridazine HCl) 50 Mg Tab 1 Dose PO BID 08/14/11 Reported TAKES 2 TABS IN AM TAKES 1 TAB AT HS Prilosec (Omeprazole) 20 Mg Capcr 20 Mg PO QAM 06/05/11 Reported Prozac (Fluoxetine HCl) 20 Mg Cap 20 Mg PO QAM 06/05/11 Reported Cogentin * (Benztropine Mesylate) 0.5 Mg Tab 0.5 Mg PO QAM 06/05/11 Reported Provider Instructions Activity Restrictions - No exercising or heavy lifting for 24 hours. - Do not drink alcohol the day of the procedure. - Do not drive a car or operate machinery until the day after the procedure. - Do not make any important decisions or sign important papers in 24 hours after the procedure. Following Day: - Return to full activity which may include returning to work/school. Diet Start your diet with liquids and light foods (jello, soup, juice, toast). Then eat your usual diet if not nauseated. Treatment For Common After Affects For mild abdominal pain, bloating, or excessive gas: - Rest - Eat lightly - Lie on right side Follow-Up Information Follow-up with Dr. Melissa GROVER,Dr. De La Garza as scheduled Anesthesia Information What You Should Know You have had a procedure that required some medicine to reduce anxiety and discomfort. This treatment is called moderate sedation. After receiving the treatment, you may be sleepy, but you will be able to breathe on your own. The effects of the treatment may last for several hours. Follow these instructions along with Activity/Diet recommendations noted above: * Do NOT do anything where dizziness or clumsiness would be dangerous. * Rest quietly at home today, then you can be up and about tomorrow. * Have a responsible person stay with you the rest of today. * You may have had an I.V. today. If so, you may take the dressing off later today. Recommendations Call your doctor if: * Trouble breathing * Continuous vomiting for more than 24 hours * Temperature above 101 degrees * Severe abdominal pain or bloating * Pain not relieved by pain medicine ordered * There is increased drainage or redness from any incision * A large amount of rectal bleeding greater than 2-3 tablespoons. (If you had a polyp/s removed or have hemorrhoids, a small amount of blood - from the rectum is to be expected.) * You have any unanswered questions or concerns. IN THE EVENT OF A SERIOUS EMERGENCY, GO TO THE NEAREST EMERGENCY ROOM Your discharge instructions were prepared by provider Deniz Bautista. Patient Instructions Signature Page Janusz Smiley Patient (or Guardian) Signature/Date: I have read and understand the instructions given to me by my caregivers. Caregiver/RN/Doctor Signature/Date: The above-named patient and/or guardian has received patient instructions on this date. + Original Patient Signature Page (only) stays with chart. Please make copy for patient.
[2017-03-06 12:54] VITALS: BP 145/85; PULSE 74; O2SAT 97
== END | disposition home or self-care (01) ==
LOC: C.GI 09:48
PROVIDERS: ATTEND Internal Medicine
DX: Z12.11 Encounter for screening for malignant neoplasm of colon (principal); D12.0 Benign neoplasm of cecum; D12.2 Benign neoplasm of ascending colon; D12.5 Benign neoplasm of sigmoid colon; K57.30 Diverticulosis of large intestine without perforation or abscess without bleeding; K64.8 Other hemorrhoids; Z87.891 Personal history of nicotine dependence; Z79.82 Long term (current) use of aspirin; Z79.899 Other long term (current) drug therapy

== ENCOUNTER → 2017-03-11 | Outpatient (CLI) | payer OTHER ==
[~2017-03-11] MED LIST changes: -PROPOFOL IV EMULSION 10 MG/ML 20 ML VIAL IV ONE; -SODIUM CHLORIDE 0.9% 500ML 500 ML IV ONE
[2017-03-11 09:36] LABS: BASO % 0.3 %; BASO ABS # 0.02 K/uL (0-0.2); COMPLETE YES; EOS % 3.6 %; HEMATOCRIT 38.9 % (42-52); IG% 0.3 %; LYMPH % 16.3 %; LYMPH ABS # 0.94 K/uL (1.2-3.4); MEAN CELL VOLUME 76.7 fL (80-100); MEAN CORPUSCULAR HGB CONC 33.9 g/dl (32-36); MEAN PLATELET VOLUME 8.6 fL (7.4-10.4); MONO % 13.9 %; NEUT % 65.6 %; PLATELET COUNT 158 K/uL (130-400); RED BLOOD COUNT 5.07 M/uL (4.7-6.1); WHITE BLOOD COUNT 5.76 K/uL (4.8-10.8)
[2017-03-11 09:37] LABS: URINE APPEARANCE CLEAR (CLEAR); URINE BILIRUBIN NEG (NEG); URINE COLOR YELLOW; URINE NITRITE NEG (NEG); URINE PH 6.5 (4.5-7.5); URINE SPECIFIC GRAVITY 1.009 (1.000-1.030); UROBILINOGEN NEG (NEG)
[2017-03-11 09:43] LABS: MANUAL MICROSCOPIC REQUIRED? NO; REVIEW REQ? NO
[2017-03-11 09:47] LABS: PARTIAL THROMBOPLASTIN RATIO 1.1; PROTHROMBIN TIME (PATIENT) 10.3 SECONDS (9.0-12.0)
[2017-03-11 10:06] LABS: BLOOD UREA NITROGEN 8 mg/dl (7-18); CALCIUM 9.3 mg/dl (8.5-10.1); CARBON DIOXIDE 28 mmol/L (21-32); CHLORIDE 105 mmol/L (98-107); CREATININE 0.89 mg/dl (0.60-1.40); GLUCOSE 108 mg/dl (70-99); SODIUM 140 mmol/L (136-145)
[2017-03-11 10:16] LABS: ESTIMATED AVERAGE GLUCOSE 114 mg/dl; HA1C FLAG Normal (Normal)
--- NOTE | 2017-03-16 11:04 | CODING QUERY MEDICAL NECESSITY ---
SUPPORTING DIAGNOSIS NEEDED A supporting diagnosis is required for the test/procedure performed on this patient in order for us to be reimbursed by the patient's insurance. Please provide a supporting diagnosis for the following test/procedure listed below next to the test name along with your signature. *If there is no additional diagnosis for this patient that would support the following test/procedure please document that below next to the test/procedure. Test(s)/Procedure(s) that require a supporting diagnosis: * HEMOGLOBIN A1C DIAGNOSIS: Provider Signature: Date: Thank you Liz Malave [employer] Once completed, please kindly fax back to [phone] For questions please call [phone]
== END | disposition home or self-care (01) ==
LOC: C.LAB 06:44
DX: Z01.818 Encounter for other preprocedural examination (principal); T84.018A Broken internal joint prosthesis, other site, initial encounter; Y83.1 Surgical operation with implant of artificial internal device as the cause of abnormal reaction of the patient, or of later complication, without mention of misadventure at the time of the procedure

== ENCOUNTER 2017-04-23 08:54 | Inpatient (IN) | payer OTHER ==
[2017-03-17 08:36] VITALS: BMI 39.0
--- NOTE | 2017-04-22 11:41 | HISTORY & PHYSICAL EXAMINATION ---
DATE OF ADMISSION: 04/23/2017 CHIEF COMPLAINT: Left knee pain status post previous total knee arthroplasty. HISTORY OF PRESENT ILLNESS: The patient is a 61-year-old male who had a left total knee arthroplasty approximately 6 years ago. He recently underwent a right total knee arthroplasty revision without complication. His primary left total knee is now showing evidence of aseptic loosening. He had a negative sed rate and a slightly elevated CRP to rule out infection. He is now scheduled for a left total knee revision arthroplasty. PAST MEDICAL HISTORY: Sleep apnea with CPAP use, depression, type 2 diabetes, and obesity. PAST SURGICAL HISTORY: Right total knee arthroplasty with subsequent right total knee revision, left total knee arthroplasty, and shoulder surgery. MEDICATIONS: Ibuprofen 800 mg 2 times daily, metformin 500 mg twice daily with morning and evening meals, Prilosec 20 mg daily, risperidone 1 mg daily, Prozac 20 mg daily, thioridazine hydrochloride 50 mg 3 times daily, and benztropine mesylate 0.5 mg twice daily. ALLERGIES: No known drug allergies. SOCIAL HISTORY AND REVIEW OF SYSTEMS: Noncontributory. PHYSICAL EXAMINATION: GENERAL: Well-nourished and well-developed male who appears his stated age. HEENT: Normocephalic and atraumatic. Extraocular movements intact. Oropharynx is pink and moist. NECK: Supple without adenopathy. LUNGS: Clear to auscultation bilaterally. HEART: Regular rate and rhythm. ABDOMEN: Soft, nontender, and nondistended. EXTREMITIES: The upper extremities are within normal limits. The left knee has normal alignment. His range of motion is from 0-120 degrees. He has diffuse discomfort with range of motion. X-RAYS: X-rays were reviewed. There was evidence of osteolysis about both tibial and femoral components. ASSESSMENT: Left knee pain status post previous total knee arthroplasty, aseptic loosening. PLAN: The above discussed with the patient. His primary care physician is Dr. Jaimes. We will proceed with left total knee revision arthroplasty upon preoperative workup and medical clearance.
[2017-04-23] VITALS (8 sets, daily range): BP systolic 120–139; BP diastolic 76–88; PULSE 82–98; TEMP 36.3–37; O2SAT 93–98; Ht 170.2 cm; Wt 113.6 kg
[~2017-04-23] VITALS: Ht 170.2 cm; Wt 113.6 kg
[2017-04-23] MEDS: TRANEXAMIC ACID INJ 1,000 MG in SODIUM CHLORIDE 0.9% 100ML 100 ML IV SCH ×2 (06:30→10:46)
[~2017-04-23 08:54] MED LIST changes: -ACET-24 PO; +ACETAMINOPHEN 500 MG TAB PO SCH; -ASPCH81X PO; -ASPEC81 PO; +BUPIVACAINE 0.25% 30 ML VIAL ONE; +BUPIVACAINE 0.5 % 5 MG/1 ML PF 10ML VIAL ONE; +CEFAZOLIN 2000 MG/60 ML D5W IV SCH; -CGN5X PO; +CeleBREX 200 MG CAP PO SCH; +DEXAMETHASONE 4 MG TAB PO SCH; +EpINEphrine INJ 1MG/ML AMP 1 MG/ML AMP ONE; +FAMOTIDINE 20 MG TAB PO SCH; -FRRG PO; +GABAPENTIN 300 MG CAP PO SCH; +LACTATED RINGER'S 1000ML 1,000 ML IV SCH; +LACTATED RINGER'S 1000ML 500 ML IV ONE; +LACTATED RINGER'S 1000ML IV SCH; +METOCLOPRAMIDE HCL 10 MG TAB PO SCH; -MULT-890 PO; -ONDA8TAB6 PO; -OXYC1TAB3 PO; -OXYSR10 PO; -POLY335019 PO; +ROPIVACAINE 5MG/ML 30 ML 150 MG, BUPIVACAINE/EPINEPHR 0.5% MPF 30 ML, KETOROLAC TROMETH... INFIL SCH; -RXC5 PO; -THIO50TA PO
[2017-04-23] MEDS ORDERED: NALOXONE HCL 0.4 MG/1 ML VIAL/CARP IV PRN (09:30)
[2017-04-23] MEDS ORDERED: FLUMAZENIL 0.1 MG/1 ML 10 ML VIAL IV PRN (09:30)
[2017-04-23] MEDS ORDERED: ATROPINE SULFATE 0.1 MG/ML 5ML SYR IV PRN (09:30)
[2017-04-23] MEDS ORDERED: MEPERIDINE HCL 25 MG/ML CARP IV PRN (09:30)
[2017-04-23] MEDS ORDERED: ONDANSETRON INJ 2 MG/ML 2 ML VIAL IV PRN ×2 (09:30→15:15)
[2017-04-23] MEDS ORDERED: FENTANYL CITRATE INJ 50 MCG/1 ML 2 ML VIAL IV PRN (09:30)
[2017-04-23] MEDS ORDERED: PHENYLEPHRINE 100MCG/ML 5ML SYR IV PRN (09:30)
[2017-04-23] MEDS ORDERED: LABETALOL HCL IV 5 MG/ML 20ML IV PRN (09:30)
[2017-04-23] MEDS ORDERED: HYDROmorphone INJ 2 MG/ML SYR/VIAL IV PRN (09:30)
[2017-04-23] MEDS ORDERED: EpHEDrine SULFATE INJ 50 MG/ML AMP IV PRN (09:30)
[2017-04-23] MEDS ORDERED: MIDAZOLAM HCL 1 MG/ML 2ML VIAL ONE ×2 (10:40)
[2017-04-23] MEDS ORDERED: BACITRACIN 50000 UNIT VIAL ONE (11:07)
[2017-04-23] MEDS ORDERED: ORTHO JOINT ANESTHETIC ONE (11:07)
[2017-04-23] MEDS ORDERED: POVIDONE-IODINE OP SOLN 30 ML BTL ONE (11:07)
[2017-04-23] MEDS ORDERED: PROPOFOL IV EMULSION 10 MG/ML 20 ML VIAL IV ONE (12:02)
[2017-04-23] MEDS ORDERED: LIDOCAINE HCL 2% 2 ML VIAL (20MG/ML) ONE (12:02)
[2017-04-23] MEDS ORDERED: KETAMINE HCL INJ 50 MG/ML 10 ML VIAL ONE (13:29)
--- NOTE | 2017-04-23 15:03 | [facility] Post Operative Brief Note ---
Immediate Operative Summary Operative Date Apr 23, 2017. Pre-Operative Diagnosis Left knee pain status post previous total knee arthroplasty, aseptic loosening. Post-Operative Diagnosis Left knee pain status post previous total knee arthroplasty, aseptic loosening. Procedure(s) Performed Left Total Knee Revision Surgeon Dr. Bautista Residential Door Installer Surgeon(s) Rodrick Perales PA-C Estimated Blood Loss 50 cc Findings gross loosening Specimens Micro #1 Left knee joint fluid, aerobic/anaerobic, gram stain, culture and sensitivity Specimen A: Left knee explanted hardware Frozen #1 Soft tissue inner chondyl notch left knee #2: Bone Cement interface left tibia Complication(s) None Disposition Recovery Room / PACU
[2017-04-23] MEDS ORDERED: METOCLOPRAMIDE HCL INJ 5 MG/ML 2 ML VIAL IV PRN (15:15)
[2017-04-23] MEDS ORDERED: OXYCODONE HCL IR 5 MG TAB (IMMEDIATE RELEASE) PO PRN (15:15)
[2017-04-23] MEDS ORDERED: TAMSULOSIN HCL 0.4 MG CAP PO PRN (15:15)
[2017-04-23] MEDS ORDERED: MoRPHine SULFATE 2 MG/ML CARP IV PRN (15:15)
[2017-04-23] MEDS ORDERED: ZOLPIDEM TARTRATE 5 MG TAB PO PRN (15:15)
[2017-04-23] MEDS ORDERED: ALUMINUM/MAGNESIUM/SIMETH (MAALOX MAX) 30 ML UDC PO PRN (15:15)
[2017-04-23] MEDS ORDERED: MAGNESIUM HYDROXIDE SUSP 30 ML UDC PO PRN (15:15)
[2017-04-23] MEDS ORDERED: PHARMACY GLYCEMIC MGMT CONSULT PRN (15:18)
[2017-04-23] MEDS ORDERED: GLUCOSE 10 TABS/TUBE PO PRN (15:45)
[2017-04-23] MEDS ORDERED: DEXTROSE 50% 50 ML SYR IV PRN (15:45)
[2017-04-23] MEDS ORDERED: GLUCAGON FOR INJ 1 MG VIAL SQ PRN (15:45)
[2017-04-23] MEDS ORDERED: GLUCOSE 40% GEL 15 GM TUBE PO PRN (15:45)
--- NOTE | 2017-04-23 15:48 | DIAGNOSTIC IMAGING REPORT ---
LEFT KNEE 1 OR 2 VIEWS ROUTINE HISTORY: 61 years-old Male status post left knee total joint arthroplasty COMPARISON: Bilateral knee radiographs 11/26/2016 TECHNIQUE: Portable AP and lateral views of the left knee. FINDINGS: There has been interval revision of the left total knee arthroplasty hardware which demonstrates satisfactory alignment. No periprosthetic fracture identified. Small bone fragments or cement material noted along the medial jointline. Midline skin rosa m are seen as well as expected postsurgical soft tissue swelling and deep tissue air about the knee. Surgical drain is in place. IMPRESSION: Status post left knee total joint arthroplasty revision without complication. The above report was generated using voice recognition software. It may contain grammatical, syntax or spelling errors. Electronically signed by: Avtar Patel M.D. 04/23/2017 3:47 PM Dictated Date/Time: 04/23/2017 3:44 PM
--- NOTE | 2017-04-23 15:55 | OPERATIVE REPORT ---
DATE OF OPERATION: 04/23/2017 PREOPERATIVE DIAGNOSIS: Aseptic loosening, left total knee. POSTOPERATIVE DIAGNOSIS: Aseptic loosening, left total knee. PROCEDURE: Revision left total knee. SURGEON: Dr. Bautista. DESULFURIZER MACHINE: Rodrick Perales PA-C. ANESTHESIA: Spinal. COMPLICATIONS: None. Mr. Perales was essential through all components of the case including positioning, prepping, draping, director surgical, wound closure and dressing application. OPERATION AND FINDINGS: The patient's left leg was prepped and draped in usual sterile manner. Limb was exsanguinated with an Esmarch bandage, tourniquet inflated to 300 mmHg. Previously made incision was reopened. Subcutaneous tissue was sharply dissected. Electrocautery used for hemostasis. A median parapatellar incision was made and 3 sets of cultures were taken. Significant hypertrophic synovitis was noted throughout the knee and this was removed using sharp dissection. The tibial poly was first disengaged and removed. Inspection of the patella found it to have no evidence of loosening and being in good condition and so it was not removed. First, attention was turned to the femur. This was undermined using flexible osteotome and using the Morgan revision knee instruments the femoral component was removed, minimal bone loss was noted. There was no soft tissue and bone cement interface. There was soft tissue in the intercondylar notch which was sent to the lab for pathologic evaluation and cell count. Next, attention was turned to the tibia where it was found to be grossly loose and was easily removed using the Morgan. Significant bone loss was noted in the proximal tibia and soft tissue at the bone cement interface was sent to lab for pathologic evaluation. Both the pathologic specimens showed no evidence of acute inflammation. The cement was arduously removed and sequential reamings were carried up to a size 10 on the tibia side and a size 16 on the femoral socket. The proximal tibia was prepared using a 10 mm build up blocks. This was done after osteotomizing the tibia at the appropriate level requiring a fairly significant cleanup cut. Also tissue was dissected free of the tibia posteriorly until the entire proximal tibial surface was visible. Next, attention was turned to the femur where a size 4 femoral component was chosen as the size to be used. The augment cutting guide was placed and two 5 mm distal augments were chosen as well as a single lateral 10 mm augment. Cuts were made for the various augments and these bone fragments were removed. The trial femoral component was assembled and a 16 mm poly was chosen as the size to be used. The knee was reduced and was found to be in good soft tissue tension in both flexion and extension and the patella tracked well with a minimum of patella baja. The trials were removed. Final components were obtained and assembled on the back table and the joint mix was injected and thorough irrigation was carried throughout the knee. The tibia was first cemented into position. Following this, the femoral component was cemented into position and following this the tibial poly was impacted. The knee was held in extension while cement hardened after all excess cement was removed. The knee was thoroughly irrigated with pulsatile irrigation and the remainder of the joint mix as well as Betadine soak were utilized. Following this, the wound was closed. The lateral slope was closed using #1 Vicryl, subcutaneous tissue was closed using #1 Vicryl. The extensor mechanism was closed using #1 Vicryl, subcutaneous tissue was closed using 0 Dexon, and skin was closed with a zipline. Silverlon dressing was applied over a Hemovac drain. The bandages of 4 x 4's, sterile Webril and double length Cayden was applied. The patient was awakened and taken to recovery in stable and good condition. He tolerated the procedure well. I attest to the content of the Intraoperative Record and any orders documented therein. Any exceptions are noted below. WARREN
--- NOTE | 2017-04-23 15:56 | Anesthesiology Progress Note ---
Anesthesia Post Op Note Date & Time Apr 23, 2017 at 15:56 Vital Signs Pain Intensity: 0 Vital Signs Past 12 Hours Date Time Temp Pulse Resp B/P (MAP) Pulse Ox O2 Delivery O2 Flow Rate FiO2 04/23/17 15:40 89 19 95/62 (75) 96 Nasal Cannula 3 04/23/17 15:30 94 23 110/66 95 Nasal Cannula 3 04/23/17 15:20 96 13 122/71 95 Nasal Cannula 3 04/23/17 15:10 90 24 109/66 97 Oxymask 10 04/23/17 15:04 36.2 92 18 104/72 97 Oxymask 10 04/23/17 09:18 36.5 86 20 133/88 95 Room Air Notes Mental Status: alert / awake / arousable, participated in evaluation Pt Amnestic to Procedure: Yes Nausea / Vomiting: adequately controlled Pain: adequately controlled Airway Patency, RR, SpO2: stable & adequate BP & HR: stable & adequate Hydration State: stable & adequate Neuraxial Anesthesia: was administered, sensory block is resolving Anesthetic Complications: no major complications apparent
[2017-04-23] MEDS ORDERED: MoRPHine SULFATE 10 MG/ML CARP/VIAL IV PRN (16:00)
[2017-04-23] MEDS ORDERED: MoRPHine SULFATE 4 MG/ML 1 ML CARP\\VIAL IV PRN (16:00)
[2017-04-23] MEDS: INSULIN ASPART 100 UNITS/ML 3 ML PEN SC SCH ×3 (16:00→20:59)
[2017-04-23] MEDS ORDERED: D5W AND 1/2NSS + 20MEQ KCL 1,000 ML IV SCH (17:00)
--- NOTE | 2017-04-23 17:26 | Pharmacy Progress Note ---
Glycemic Control Intl Consult Date of Service Apr 23, 2017. Scope Glycemic Pharmacist consulted by Wily FARMER on 04/23/17 for glycemic control and to write orders per [facility] inpatient glycemic control protocol Objective Weight (Kilograms): 113.64 Accuchecks BSG (last 24hrs): Test 04/23/17 09:23 04/23/17 15:21 Bedside Glucose 119 mg/dl (70-99) 163 mg/dl (70-99) Recent Pertinent Medications Outpatient Anti-diabetic Regimen: * Metformin 500 mg PO BID * A1c = 5.6 % 03/11/17 Risk Factors for Insulin Resistance: * Steroids: Ortho + Dexamethasone 8 mg PO pre-op, Dexamethasone 10 mg IV x 1 dose on 04/24 am * Infection: Ancef shaan-op * IVF: D5 1/2 NS + 20 meq @ 100 ml/hr x 24 hr * Recent Surgery: POD #0 s/p L-TKA revision * Diet: T2DM Assessment & Plan ASSESSMENT: * 61 yr old T2DM male with good outpatient control. * Potential for hyperglycemia due to stress from recent surgery and administration of steroids. * Will utilize more stringent goal of 110-140mg/dl based on patient age & comorbidities. Additionally, tighter glycemic control is warranted to facilitate wound/infection healing.ADA & AACE recommend a goal blood sugar range 140-180 mg/dl for the majority of critically ill & non-critically ill patients. However, more stringent targets may be selected in individual cases. * Patient will be given a one time dose of Lantus this evening - further basal insulin will be based on BSG values overnight. PLAN FOR INPATIENT GLYCEMIC CONTROL: * Holding outpatient oral diabetes medications * LANTUS 20 units SQ x 1 dose 04/23 pm * Correctional Insulin with NOVOLOG per scale ACHS * Goal Range: Low 110 mg/dL - High 140 mg/dL * Correction Factor: 20 mg/dL/unit * Nutritional / Prandial insulin per carb ratio of 1 unit per 7 grams CHO consumed LOOKING AHEAD TO DISCHARGE: * Good outpatient control evidenced by A1c of 5.6% on 03/11/17 * Continue Metformin 500 mg PO BID on discharge * recommend increasing dose by 500 mg per week to goal dose of 1000 mg PO BID as tolerated * administer with food to limit GI side effects * Please note that the plan above was derived based on current level of insulin resistance and hospital stress. These recommendations are appropriate for inpatient admission only. Plan of care upon discharge will need to be reassessed to avoid potential outpatient hypo/hyperglycemia. Thank you.
[2017-04-23] MEDS ORDERED: LANTUS PER UNIT CHARGE SQ ONE (17:30)
[2017-04-23] MEDS ORDERED: NURSING VERBAL MED ORDER ONE (17:30)
[2017-04-23] MEDS: SODIUM CHLORIDE 0.9% 1000ML 1,000 ML IV SCH (17:39)
[2017-04-23] MEDS: FERROUS GLUCONATE 324 MG TAB PO SCH (18:32)
[2017-04-23] MEDS: CEFAZOLIN IV 2,000 MG in DEXTROSE 5% 50ML 50 ML IV SCH (20:08)
[2017-04-23] MEDS: DOCUSATE SODIUM 100 MG CAP PO SCH (20:56)
[2017-04-23] MEDS: ASPIRIN 81 MG ECTAB PO SCH (20:56)
[2017-04-23] MEDS: THIORIDAZINE HCL 50 MG TAB PO SCH (20:57)
[2017-04-23] MEDS: OXYCODONE HCL 10 MG TABCR (OXYCONTIN) PO SCH (21:03)
[2017-04-23] MEDS: ACETAMINOPHEN 500 MG TAB PO SCH (21:40)
[2017-04-23] MEDS: KETOROLAC TROMETHAMINE 30 MG/ML VIAL IV. SCH (21:40)
[2017-04-24] MEDS: INSULIN ASPART 100 UNITS/ML 3 ML PEN SC SCH ×6 (01:08→21:48)
[2017-04-24 03:46] VITALS: BP 121/80; PULSE 89; TEMP 36.5; O2SAT 92
[2017-04-24] MEDS: KETOROLAC TROMETHAMINE 30 MG/ML VIAL IV. SCH ×3 (03:54→16:13)
[2017-04-24] MEDS: SODIUM CHLORIDE 0.9% 1000ML 1,000 ML IV SCH (03:54)
[2017-04-24] MEDS: CEFAZOLIN IV 2,000 MG in DEXTROSE 5% 50ML 50 ML IV SCH (03:54)
[2017-04-24 06:14] LABS: HEMATOCRIT 34.1 % (42-52); MEAN CELL VOLUME 77.1 fL (80-100); MEAN CORPUSCULAR HEMOGLOBIN 26.7 pg (25-34); MEAN CORPUSCULAR HGB CONC 34.6 g/dl (32-36); MEAN PLATELET VOLUME 8.9 fL (7.4-10.4); PLATELET COUNT 166 K/uL (130-400); RED BLOOD COUNT 4.42 M/uL (4.7-6.1); WHITE BLOOD COUNT 15.49 K/uL (4.8-10.8)
[2017-04-24] MEDS: ACETAMINOPHEN 500 MG TAB PO SCH ×3 (06:27→21:42)
[2017-04-24 06:55] LABS: BUN/CREATININE RATIO 14.1 (10-20); CALCIUM 8.7 mg/dl (8.5-10.1); CREATININE 0.92 mg/dl (0.60-1.40); POTASSIUM 3.7 mmol/L (3.5-5.1)
--- NOTE | 2017-04-24 07:09 | Orthopedic Progress Note ---
Orthopedic Progress Note Date of Service Apr 24, 2017. Subjective Post OP Day: 1 Reports: feeling well Objective N/V intact, dressing C/D/I (Hemovac in place), toes mobile Date Time Temp Pulse Resp B/P (MAP) Pulse Ox O2 Delivery O2 Flow Rate FiO2 04/24/17 03:46 36.5 89 16 121/80 (94) 92 Room Air 04/23/17 23:15 Room Air CPAP 04/23/17 22:59 36.5 98 16 132/88 (103) 93 Room Air 04/23/17 19:19 36.5 92 18 139/82 (101) 97 Nasal Cannula 2.0 04/23/17 18:17 36.9 90 17 125/81 (96) 96 Nasal Cannula 2.0 04/23/17 17:20 36.3 82 18 128/83 (98) 95 Nasal Cannula 3.0 04/23/17 16:48 36.3 90 18 139/84 (102) 98 Nasal Cannula 3.0 04/23/17 16:20 95 Nasal Cannula 3.0 04/23/17 16:20 Nasal Cannula 3.0 04/23/17 16:15 37.0 89 20 120/76 (91) 95 Nasal Cannula 3.0 04/23/17 16:00 89 14 90/68 94 Nasal Cannula 3 04/23/17 15:50 36.2 88 20 113/61 94 Nasal Cannula 3 04/23/17 15:40 89 19 95/62 (75) 96 Nasal Cannula 3 04/23/17 15:30 94 23 110/66 95 Nasal Cannula 3 04/23/17 15:20 96 13 122/71 95 Nasal Cannula 3 04/23/17 15:10 90 24 109/66 97 Oxymask 10 04/23/17 15:04 36.2 92 18 104/72 97 Oxymask 10 04/23/17 09:18 36.5 86 20 133/88 95 Room Air Laboratory Results 24 Hours: Test 04/24/17 05:04 Hematocrit 34.1 % Hemoglobin 11.8 g/dL Assessment & Plan Assessment: 61 yo male stable POD #1 s/p left TKA revision Plan: 1. Med management 2. DVT prophylaxis- ASA, SCDs 3. PT/OT 4. D/C planning- home w/ OPPT
--- NOTE | 2017-04-24 07:11 | Discharge Instructions ---
Discharge Instructions Date of Service Apr 24, 2017. Admission Reason for Admission: Left Knee Mechanical Loosening Of Prosthetic Joint Discharge Discharge Diagnosis / Problem: Aseptic lossening left tKA Discharge Goals Goal(s): Decrease discomfort, Improve function Activity Recommendations Activity Limitations: as noted below Weightbearing Status: Left weightbearing (as tolerated) . Instructions / Follow-Up Instructions / Follow-Up ACTIVITY RECOMMENDATIONS: SELF CARE INSTRUCTIONS AFTER TOTAL KNEE REPLACEMENT A. You may need to continue a physical therapy program after discharge from the hospital. There are several options available to you. Your doctor will assist you in selecting the best one for you. 1. An out-patient facility 2 to 3 times a week for therapy or home therapy. 2. Continue working on all exercises taught to you in the hospital. Your goals should be to increase bending of your knee to 90 degrees and beyond and to fully straighten your knee. B. You may progress at your own pace from walking with a walker or crutches to a cane; then to no assistive devices. C. Make walking a part of your daily routine. Be up as much as comfortable with rest periods throughout the day. Rest with leg elevation is very important. Use the ice wrap frequently for the first 3-4 weeks. D. There are no restrictions on activities. You may ride in a car, shop, participate in cashier host/hostess and all social activities. E. Wear the long elastic stockings (GERMAIN hose) 20 hours a day for 2 weeks after surgery. They can be removed several times a day for laundering and for a bath. F. You may shower, no tub baths until cleared by your doctor. SPECIAL CARE INSTRUCTIONS: VERY IMPORTANT TO READ AND REVIEW A. There are a few signs you need to watch for after you are home. Call [facility] [place] if you notice any of the followin. Increased severe knee pain. Some pain is expected especially when you exercise. 2. Increased swelling in your leg or knee; pain or swelling of the calf muscle in either lower leg. 3. Any fluid drainage from the incision. 4. Shortness of breath or chest pain. B. Please call [facility] at if you have any concerns or questions about your operation or recovery. The doctor or his nurse will return your call promptly. C. You must take antibiotics before dental work, bladder, bowel or other surgery. Your doctor will provide you with a permanent care to carry describing this precaution. IMPORTANT: * REMEMBER TO TAKE ASPIRIN, 81 MG, TWICE DAILY FOR 4 WEEKS UNLESS OTHERWISE DIRECTED. THIS IS YOUR BLOOD THINNER. * HIGH RISK PATIENTS MAY BE PRESCRIBED A STRONGER BLOOD THINNER. THIS WILL BE PROVIDED AT DISCHARGE. * CALL IF INCREASED PAIN, REDNESS, DRAINAGE OR FEVER GREATER THAT 101. * WEAR GERMAIN HOSE 20 HOURS PER DAY FOR 2 WEEKS. Silverlon- This is a large adhesive bandage that contains silver ions. This helps your incision heal by fighting off bacteria and protecting it from the outside environment. You are permitted to shower with this dressing. This will remain on your incision for 7 days and then should be removed. Some visible blood or drainage through the dressing window is normal. If there is significant drainage or leaking noted before the 7 days notify your doctor's office immediately. Once removed, keep incision clean and dry. If there is any drainage or redness noted, please call your surgeon. FOLLOW UP VISIT: If appointment is not already scheduled: Please call [facility] to make a follow-up appointment for 2 weeks after your surgery at . Current Hospital Diet Patient's current hospital diet: Diabetes Type 2 Diet Discharge Diet Recommended Diet: Diabetes Type 2 Diet Procedures Procedures Performed: Left Total Knee Revision Pending Studies Studies pending at discharge: no Laboratory Results Hemoglobin A1c Test 03/11/17 06:50 Range/Units Estimated Average Glucose 114 mg/dl Hemoglobin A1c 5.6 4.5-5.6 % Medical Emergencies . Who to Call and When: Medical Emergencies: If at any time you feel your situation is an emergency, please call 911 immediately. . Non-Emergent Contact Non-Emergency issues call your: Surgeon Call Non-Emergent contact if: temperature is above 101.5, your pain is not controlled, wound has increased drainage, wound has increased redness . "Provider Documentation" section prepared by Rodrick Perales PA-C. . VTE Core Measure Inpt VTE Proph given/why not?: Other Anticoagulation (ASA 81mg bid), T.E.D. Stockings, SCD's [place] Drug Monitoring Program Search Results: patient reviewed within database, no issues identified
[2017-04-24 07:25] VITALS: BP 141/78; PULSE 92; TEMP 36.4; O2SAT 96
[2017-04-24] MEDS ORDERED: DEXAMETHASONE INJ 10 MG in SYRINGE 0 ML IV SCH (07:30)
[2017-04-24] MEDS ORDERED: LANTUS PER UNIT CHARGE SQ ONE (08:00)
--- NOTE | 2017-04-24 08:15 | Anesthesiology Progress Note ---
Anesthesia Post Op Note Date & Time Apr 24, 2017 at 08:13 Vital Signs Pain Intensity: 0.0 Vital Signs Past 12 Hours Date Time Temp Pulse Resp B/P (MAP) Pulse Ox O2 Delivery O2 Flow Rate FiO2 04/24/17 07:25 36.4 92 17 141/78 (99) 96 Room Air 04/24/17 03:46 36.5 89 16 121/80 (94) 92 Room Air 04/23/17 23:15 Room Air CPAP 04/23/17 22:59 36.5 98 16 132/88 (103) 93 Room Air Notes Mental Status: alert / awake / arousable, participated in evaluation Pt Amnestic to Procedure: Yes Nausea / Vomiting: adequately controlled Pain: adequately controlled Airway Patency, RR, SpO2: stable & adequate BP & HR: stable & adequate Hydration State: stable & adequate Neuraxial Anesthesia: sensory block resolved Anesthetic Complications: no major complications apparent
[2017-04-24] MEDS: ASPIRIN 81 MG ECTAB PO SCH ×2 (08:32→21:42)
[2017-04-24] MEDS: OXYCODONE HCL 10 MG TABCR (OXYCONTIN) PO SCH ×2 (08:32→21:40)
[2017-04-24] MEDS: FERROUS GLUCONATE 324 MG TAB PO SCH ×3 (08:32→17:57)
[2017-04-24] MEDS: MULTIVITAMIN TAB PO SCH (08:32)
[2017-04-24] MEDS: FLUOXETINE HCL 20 MG CAP PO SCH (08:32)
[2017-04-24] MEDS: PANTOprazole SOD 40 MG TAB PO SCH (08:32)
[2017-04-24] MEDS: RISPERIDONE 1 MG TAB PO SCH (08:33)
[2017-04-24] MEDS: DOCUSATE SODIUM 100 MG CAP PO SCH ×2 (08:33→21:41)
[2017-04-24] MEDS: THIORIDAZINE HCL 50 MG TAB PO SCH ×2 (08:33→21:00)
[2017-04-24] MEDS: BENZTROPINE MESYLATE 0.5 MG TAB PO SCH (08:34)
--- NOTE | 2017-04-24 09:54 | Pharmacy Progress Note ---
Glycemic Control Progress Note Date of Service Apr 24, 2017. Scope Glycemic Pharmacist consulted for glycemic control to write orders per [facility] inpatient glycemic control protocol. Objective Accuchecks BSG (last 24hrs): Test 04/23/17 15:21 04/23/17 17:08 04/23/17 20:42 04/23/17 23:50 Bedside Glucose 163 mg/dl (70-99) 154 mg/dl (70-99) 202 mg/dl (70-99) 142 mg/dl (70-99) Test 04/24/17 03:49 04/24/17 05:04 04/24/17 08:27 Bedside Glucose 140 mg/dl (70-99) 157 mg/dl (70-99) Random Glucose 139 mg/dl (70-99) Recent Pertinent Medications Risk Factors for Insulin Resistance: * Steroids: Ortho + Dexamethasone 8 mg PO pre-op, Dexamethasone 10 mg IV x 1 dose on 8 am * Recent Surgery: POD #1 s/p L-TKA revision * Diet: T2DM Outpatient Anti-Diabetic Meds Oral Agents * Metformin 500 mg PO BID A1c = 5.6 % 03/11/17 Assessment & Plan ASSESSMENT: * 61 yr old T2DM male on metformin with good outpatient control. Potential for hyperglycemia due to stress from recent surgery and admin. of steroids. * BSGs have ranged from 119 to 202 mg/dL over the past 24 hours - pt received 31 units of insulin * Fasting BSG of 157 mg/dL is slightly elevated - continue Lantus until effect of dexamethasone dissipates. * Prandial BSGs improved but slightly above goal - tighten CF/CR to wt/stress of 3- will follow closely and loosen as needed since last dose of dexamethasone was this morning. PLAN FOR INPATIENT GLYCEMIC CONTROL: * Resume metformin 500 mg PO BID this evening * Basal insulin * Lantus 10 units SQ qam * Lantus 10 units SQ qpm if BSG is > 140 mg/dL * Correctional Insulin with NOVOLOG per scale ACHS - tighten parameters * Goal Range: Low 110 mg/dL - High 140 mg/dL * Correction Factor: 15 mg/dL/unit * Nutritional / Prandial insulin per carb ratio of 1 unit per 5 grams CHO consumed DISCHARGE RECOMMENDATIONS: * Good outpatient control evidenced by A1c of 5.6% on 03/11/17 * Continue Metformin 500 mg PO BID on discharge * recommend increasing dose by 500 mg per week to goal dose of 1000 mg PO BID as tolerated * administer with food to limit GI side effects * Please note that the plan above was derived based on current level of insulin resistance and hospital stress. These recommendations are appropriate for inpatient admission only. Plan of care upon discharge will need to be reassessed to avoid potential outpatient hypo/hyperglycemia. Thank you.
[2017-04-24 10:30] VITALS: BP 155/93; PULSE 91; TEMP 36.5; O2SAT 93
[2017-04-24 15:31] VITALS: BP 135/83; PULSE 86; TEMP 36.4; O2SAT 93
[2017-04-24] MEDS: METFORMIN HCL 500 MG TAB PO SCH (17:58)
[2017-04-24] MEDS ORDERED: LANTUS PER UNIT CHARGE SQ STA (21:42)
[2017-04-24] MEDS ORDERED: NURSING VERBAL MED ORDER ONE (21:45)
[2017-04-24 23:11] VITALS: BP 143/78; PULSE 76; TEMP 36.3; O2SAT 94
[2017-04-25] MEDS: ACETAMINOPHEN 500 MG TAB PO SCH (05:39)
[2017-04-25 07:20] VITALS: BP 150/98; PULSE 76; TEMP 36.7; O2SAT 95
--- NOTE | 2017-04-25 08:42 | Orthopedic Progress Note ---
Orthopedic Progress Note Date of Service Apr 25, 2017. Subjective Post OP Day: 2 Reports: feeling well, pain controlled w PO medications, Denies: chest pain, SOB , nausea / vomiting, light headedness, calf pain Objective calves soft nontender, N/V intact, capillary refill less than 2 sec., dressing C /D/I (silverlon), A&O x3, toes mobile Date Time Temp Pulse Resp B/P (MAP) Pulse Ox O2 Delivery O2 Flow Rate FiO2 04/25/17 07:20 36.7 76 16 150/98 (115) 95 Room Air 04/24/17 23:45 Room Air 04/24/17 23:11 36.3 76 20 143/78 (99) 94 Room Air 04/24/17 15:31 36.4 86 17 135/83 (100) 93 Nasal Cannula 04/24/17 15:25 Room Air 04/24/17 10:30 36.5 91 18 155/93 (113) 93 Room Air Assessment & Plan Assessment: 61 yo male stable POD #2 s/p left TKA revision Plan: 1. Med management 2. DVT prophylaxis- ASA, SCDs 3. PT/OT 4. D/C planning- home w/ OPPT Patient seen and examined, agree with above. Inhouse Planning Pain Management: Oxycontin, PO Tylenol, Oxy IR DVT Prophylaxis: TEDs, SCDs, ASA Discharge Planning Discharge Planning: home with oppt Pain Management: Oxycontin, PO Tylenol, Oxy IR DVT Prophylaxis: TEDs, ASA Therapy: Physical Therapy
[2017-04-25] MEDS ORDERED: OXYSR10 PO (08:45)
[2017-04-25] MEDS ORDERED: MULT-890 PO (08:45)
[2017-04-25] MEDS ORDERED: FRRG PO (08:45)
[2017-04-25] MEDS ORDERED: ACET-24 PO (08:45)
[2017-04-25] MEDS ORDERED: ASPEC81 PO (08:45)
[2017-04-25] MEDS ORDERED: RXC5 PO (08:45)
[2017-04-25] MEDS ORDERED: ONDA8TAB6 PO (08:45)
[2017-04-25] MEDS: DOCUSATE SODIUM 100 MG CAP PO SCH (09:00)
[2017-04-25] MEDS: FERROUS GLUCONATE 324 MG TAB PO SCH (09:33)
[2017-04-25] MEDS: BENZTROPINE MESYLATE 0.5 MG TAB PO SCH (09:34)
[2017-04-25] MEDS: METFORMIN HCL 500 MG TAB PO SCH (09:34)
[2017-04-25] MEDS: ASPIRIN 81 MG ECTAB PO SCH (09:35)
[2017-04-25] MEDS: PANTOprazole SOD 40 MG TAB PO SCH (09:36)
[2017-04-25] MEDS: THIORIDAZINE HCL 50 MG TAB PO SCH (09:37)
[2017-04-25] MEDS: FLUOXETINE HCL 20 MG CAP PO SCH (09:37)
[2017-04-25] MEDS: MULTIVITAMIN TAB PO SCH (09:38)
[2017-04-25] MEDS: RISPERIDONE 1 MG TAB PO SCH (09:38)
[2017-04-25] MEDS: OXYCODONE HCL 10 MG TABCR (OXYCONTIN) PO SCH (09:42)
[2017-04-25] MEDS: INSULIN ASPART 100 UNITS/ML 3 ML PEN SC SCH (09:46)
[2017-04-25 10:33] VITALS: BP 150/98; PULSE 76; TEMP 36.7; O2SAT 95
--- NOTE | 2017-05-06 20:44 | DISCHARGE SUMMARY ---
CHIEF COMPLAINT: Left knee pain status post previous total knee arthroplasty. Please see complete history and physical examination. HOSPITAL COURSE: The patient underwent a left total knee revision arthroplasty without complication. He tolerated the procedure well and was discharged to recovery room in stable condition. His postoperative course was relatively uneventful. His postoperative pain was reasonably well controlled with a combination of spinal anesthesia, adductor canal block, intraoperative joint injection, IV, and oral pain medications. He was started on aspirin for DVT prophylaxis. He also utilized GERMAIN stockings and SCDs for additional prophylaxis. His H&H was stable and did not require transfusion. His surgical drain was discontinued on postoperative day #2. Surgical dressing will remain in place for approximately 7 days postoperative. He tolerated postoperative physical therapy reasonably well as he was bending his knee and ambulating appropriately. He was discharged home on postoperative day #2. He will continue his physical therapy as an outpatient. He will continue his aspirin for DVT prophylaxis and follow up in our office in approximately 10-14 days for his initial postop evaluation.
== END 2017-04-25 12:35 | disposition home or self-care (01) | DRG 468 ==
LOC: C.ACU 08:54 → C.3E 15:14 → ENRESERV 15:45
PROC: 0SRD0J9 Replacement of Left Knee Joint with Synthetic Substitute, Cemented, Open Approach (ICD-10-PCS; principal; 2017-04-23 11:00)
PROC: 0SPD0JZ Removal of Synthetic Substitute from Left Knee Joint, Open Approach (ICD-10-PCS; principal; 2017-04-23 11:00)
DX: T84.033A Mechanical loosening of internal left knee prosthetic joint, initial encounter (principal); G47.30 Sleep apnea, unspecified; F32.9 Major depressive disorder, single episode, unspecified; E11.9 Type 2 diabetes mellitus without complications; Z96.653 Presence of artificial knee joint, bilateral; Y83.1 Surgical operation with implant of artificial internal device as the cause of abnormal reaction of the patient, or of later complication, without mention of misadventure at the time of the procedure

== ENCOUNTER 2017-05-04 10:50 | Emergency (ER) | payer OTHER ==
[~2017-05-04] VITALS: Ht 170.2 cm; Wt 123.6 kg
[~2017-05-04 10:50] MED LIST changes: +ACET-24 PO; -ACETAMINOPHEN 500 MG TAB PO SCH; +ASPEC81 PO; -BUPIVACAINE 0.25% 30 ML VIAL ONE; -BUPIVACAINE 0.5 % 5 MG/1 ML PF 10ML VIAL ONE; -CEFAZOLIN 2000 MG/60 ML D5W IV SCH; -CeleBREX 200 MG CAP PO SCH; -DEXAMETHASONE 4 MG TAB PO SCH; -EpINEphrine INJ 1MG/ML AMP 1 MG/ML AMP ONE; -FAMOTIDINE 20 MG TAB PO SCH; +FRRG PO; -GABAPENTIN 300 MG CAP PO SCH; -IBUP-103 PO; -LACTATED RINGER'S 1000ML 1,000 ML IV SCH; -LACTATED RINGER'S 1000ML 500 ML IV ONE; -LACTATED RINGER'S 1000ML IV SCH; -METOCLOPRAMIDE HCL 10 MG TAB PO SCH; +MULT-890 PO; +ONDA8TAB6 PO; +OXYSR10 PO; -ROPIVACAINE 5MG/ML 30 ML 150 MG, BUPIVACAINE/EPINEPHR 0.5% MPF 30 ML, KETOROLAC TROMETH... INFIL SCH; +RXC5 PO
[2017-05-04 10:52] VITALS: TEMP 36.5; Ht 170.2 cm; Wt 123.6 kg
--- NOTE | 2017-05-04 11:16 | EMERGENCY ROOM VISIT NOTE ---
History Report prepared by Joseline: Emeli Wade Under the Supervision of: Dr. Hero Arizmendi M.D. First contact with patient: 10:58 Chief Complaint: CONSTIPATION Stated Complaint: CONSTIPATION History of Present Illness The patient is a 61 year old male who presents to the Emergency Room with complaints of persistent constipation that began several days ago. He currently rates his discomfort as an 8/10 in severity. The patient reports that on April 23 he had a left knee replacement. He states that he has been taking pain medications. The patient states that he has been constipated for the past several days. He reports a history of a stomach several years ago, but denies any other abdominal issues. The patient denies trying any over the counter medications for his symptoms. He denies any fever. The patient denies being on any anti-coagulants. Source of History: patient Onset: several days ago Position: other (global) Symptom Intensity: 8/10 Quality: other (constipation) Timing: other (persistent) Associated Symptoms: No fevers Review of Systems See HPI for pertinent positives & negatives. A total of 6 systems reviewed and were otherwise negative. Past Medical & Surgical Medical Problems: (1) failed left total knee arthroplasty (2) Pain due to total right knee replacement Family History No pertinent family history stated. Social History Smoking Status: Never Smoker Marital Status: single Occupation Status: disabled Current/Historical Medications Scheduled Aspirin (Aspirin EC Low Dose), 81 MG PO BID Benztropine Mesylate (Benztropine Mesylate), 0.5 MG PO QAM Fluoxetine (Prozac), 20 MG PO QAM Metformin Hcl (Glucophage), 500 MG PO BID Multiple Vitamin (Daily-Quang), 1 TAB PO QAM Omeprazole (Prilosec), 20 MG PO QAM Risperidone (Risperdal), 1 MG PO QAM Thioridazine Hcl (Mellaril), 100 MG PO QAM Thioridazine Hcl (Mellaril), 50 MG PO HS Scheduled PRN Amoxicillin (Amoxil), 2,000 MG PO UD PRN for RN Oxycodone Ir (Roxicodone Ir), 5-10 MG PO Q4H PRN for Pain Polyethylene Glycol 3350 (Miralax), 17 GM PO DAILY PRN for Constipation Allergies Coded Allergies: No Known Allergies (Unverified , 05/04/17) Physical Exam Vital Signs Date Time Temp Pulse Resp B/P (MAP) Pulse Ox O2 Delivery O2 Flow Rate FiO2 05/04/17 12:45 104 18 144/77 97 Room Air 05/04/17 10:52 36.5 102 17 150/88 95 Room Air Physical Exam GENERAL: Patient is well appearing and in no acute distress. HEENT: No acute trauma, normocephalic atraumatic, mucous membranes moist, no nasal congestion, no scleral icterus. NECK: No stridor, no adenopathy, no meningismus, trachea is midline. LUNGS: No dyspnea. Clear to auscultation and equal bilaterally. No wheeze, no rhonchi. HEART: Regular rate and rhythm. No murmurs, rubs, gallops appreciated. ABDOMEN: Soft, nontender, hypoactive bowel sounds, no masses appreciated, no peritonitis. BACK: No midline tenderness, no CVA tenderness EXTREMITIES: Post-surgical anterior left knee, mild surrounding erythema, no obvious cellulitis, no infection appreciated. NEUROLOGIC: Alert and oriented, no acute motor or sensory deficits, no focal weakness, cranial nerves grossly intact. SKIN: No rash, no jaundice, no diaphoresis. Medical Decision & Procedures ER Provider Diagnostic Interpretation: X ray results are stated below per my interpretation and the radiologist's interpretation. KUB HISTORY: Acute abdominal distention with history of recent surgery. History of constipation. constipation s/p opioid use COMPARISON: Abdominal radiographs 09/01/2014 FINDINGS: The bowel gas pattern is non-obstructive. Moderate stool filled distention of the rectum is seen measuring up to 6.9 cm transversely. There is no organomegaly. No renal calculi. No ureteral calculi. No pneumoperitoneum or pneumatosis. No fracture. Facet arthropathy involves the lower lumbar spine. Mild degenerative changes about the hips. IMPRESSION: 1. Nonobstructive bowel gas pattern without pneumoperitoneum. 2. Moderate stool associated distention of the rectum. Electronically signed by: Avtar Patel M.D. 05/04/2017 11:29 AM Dictated Date/Time: 05/04/2017 11:26 AM Medications Administered Medications (Trade) Dose Ordered Sig/Jair Route Start Time Stop Time Status Last Admin Dose Admin Miscellaneous Medication (Milk And Molasses Enema) 1 ea NOW STAT [place] 05/04/17 11:18 05/04/17 11:20 DC 05/04/17 11:18 1 EA Magnesium Citrate (Citrate Of Magnesia Soln) 148 ml NOW STAT PO 05/04/17 11:18 05/04/17 11:20 DC 05/04/17 11:25 148 ML ED Course 1104: The patient was evaluated in room C10. A complete history and physical exam was performed. 1118: Ordered Magnesium Citrate 148 ml PO, Milk and Molasses Enema 1 ea [place]. 1123: I reevaluated the patient and he is in agreement to go ahead with the enema. 1245: I reevaluated the patient and he has had multiple large bowel movements and he is feeling better. I discussed all the exam findings with him and I discussed the treatment plan. He verbalized complete understanding and agreement. He is ready to go home. Medical Decision Differential: Sepsis, Infectious (UTI/Pneumonia/Meningitis/etc), Metabolic/ Electrolyte Abnormality, Cardiac, Hepatic, Endocrine, Toxicologic, Neurologic, amongst other pathologies entertained. 61 yr old male arrives with complaint of constipation secondary to opioid use post left knee replacement. Abdominal exam benign other than hypoactive bowels. Knee looks appropriate for post op without evidence infection/dvt. KUB with large stool burden which was relieved with mag citrate and enema. Feeling better and wishing discharge. Will start colace and have him finish mag citrate this evening. Medication Reconcilliation Current Medication List: was personally reviewed by me Blood Pressure Screening Patient's blood pressure: Elevated blood pressure Blood pressure disposition: Elevated BP felt to be situational, Did not require urgent referral Impression Primary Impression: Constipation Scribe Attestation The scribe's documentation has been prepared under my direction and personally reviewed by me in its entirety. I confirm that the note above accurately reflects all work, treatment, procedures, and medical decision making performed by me. Departure Information Dispostion Home / Self-Care Prescriptions Polyethylene Glycol 3350 (MIRALAX) 1 Pow Pow 17 GM PO DAILY Y for Constipation, #527 GM Prov: Hero Arizmendi M.D. 05/04/17 Referrals Efren De La Garza M.D. Forms HOME CARE DOCUMENTATION FORM, IMPORTANT VISIT INFORMATION Patient Instructions ED Constipation, My [facility] Additional Instructions Take the second half of mag citrate at dinner. Keep well hydrated. Problem Qualifiers Primary Impression: Constipation Constipation type: drug induced constipation Qualified Codes: K59.03 - Drug induced constipation
[2017-05-04] MEDS ORDERED: MILK AND MOLASSES ENEMA PR STA (11:18)
[2017-05-04] MEDS ORDERED: MAGNESIUM CITRATE 296 ML/BTL PO STA (11:18)
[2017-05-04] MEDS ORDERED: OXYC1TAB3 PO (11:28)
[2017-05-04] MEDS ORDERED: CGN5X PO (11:28)
[2017-05-04] MEDS ORDERED: THIO50TA PO (11:28)
[2017-05-04] MEDS ORDERED: THIO50TA9 PO (11:28)
--- NOTE | 2017-05-04 11:30 | DIAGNOSTIC IMAGING REPORT ---
KUB HISTORY: Acute abdominal distention with history of recent surgery. History of constipation. constipation s/p opioid use COMPARISON: Abdominal radiographs 09/01/2014 FINDINGS: The bowel gas pattern is non-obstructive. Moderate stool filled distention of the rectum is seen measuring up to 6.9 cm transversely. There is no organomegaly. No renal calculi. No ureteral calculi. No pneumoperitoneum or pneumatosis. No fracture. Facet arthropathy involves the lower lumbar spine. Mild degenerative changes about the hips. IMPRESSION: 1. Nonobstructive bowel gas pattern without pneumoperitoneum. 2. Moderate stool associated distention of the rectum. Electronically signed by: Avtar Patel M.D. 05/04/2017 11:29 AM Dictated Date/Time: 05/04/2017 11:26 AM
[2017-05-04 12:45] VITALS: BP 144/77; PULSE 104; O2SAT 97
[2017-05-04] MEDS ORDERED: POLY335019 PO (12:48)
== END 2017-05-04 12:58 | disposition home or self-care (01) ==
LOC: C.EDB 10:51 → C.EDC 12:58
DX: K59.03 Drug induced constipation (principal); Z79.82 Long term (current) use of aspirin